=== PATIENT | male | born 1935 | race Caucasian/White ===

== ENCOUNTER → 2016-11-24 | Outpatient (CLI) | payer OTHER, MEDICARE ==
[~2016-11-24] MED LIST: ANT PO; ASPI-435 PO; CALC1TAB9 PO; LOSA1TAB PO; MULT-506 PO; NTRGSL/4 UT; OMEG10007 PO; ROSU5TAB PO
--- NOTE | 2016-11-24 08:38 | DIAGNOSTIC IMAGING REPORT ---
CHEST 2 VIEWS ROUTINE CLINICAL HISTORY: Pneumonia COMPARISON STUDY: 05/08/2016 FINDINGS: There are postsurgical changes of a midline sternotomy. There is indistinctness left heart border, similar to the prior study and likely chronic. There is no lobar consolidation. There is no failure. There are no pleural effusions.[ IMPRESSION: Indistinctness of the left heart border, a finding which is felt to be chronic. No acute findings. Electronically signed by: Simone Fountain M.D. 11/24/2016 8:37 AM Dictated Date/Time: 11/24/2016 8:36 AM
== END | disposition home or self-care (01) ==
LOC: C.RADBC 07:32
PROVIDERS: ATTEND Internal Medicine
DX: J18.9 Pneumonia, unspecified organism (principal); R93.1 Abnormal findings on diagnostic imaging of heart and coronary circulation

== ENCOUNTER → 2017-01-30 | Outpatient (CLI) | payer OTHER, MEDICARE ==
[2017-01-30 11:27] LABS: BASO % 0.5 %; BASO ABS # 0.03 K/uL (0-0.2); COMPLETE YES; EOS % 2.5 %; HEMATOCRIT 41.7 % (42-52); IG% 0.2 %; LYMPH % 29.1 %; LYMPH ABS # 1.78 K/uL (1.2-3.4); MEAN CELL VOLUME 91.4 fL (80-100); MEAN CORPUSCULAR HEMOGLOBIN 31.8 pg (25-34); MEAN CORPUSCULAR HGB CONC 34.8 g/dl (32-36); MEAN PLATELET VOLUME 12.2 fL (7.4-10.4); MONO % 11.1 %; NEUT % 56.6 %; PLATELET COUNT 181 K/uL (130-400); RED BLOOD COUNT 4.56 M/uL (4.7-6.1); WHITE BLOOD COUNT 6.11 K/uL (4.8-10.8)
[2017-01-30 11:42] LABS: ALT/SGPT 20 U/L (12-78); AST/SGOT 17 U/L (15-37); BLOOD UREA NITROGEN 16 mg/dl (7-18); CALCIUM 8.6 mg/dl (8.5-10.1); CARBON DIOXIDE 27 mmol/L (21-32); CHLORIDE 106 mmol/L (98-107); CREATININE 0.75 mg/dl (0.60-1.40); GLUCOSE 94 mg/dl (70-99); POTASSIUM 4.3 mmol/L (3.5-5.1); SODIUM 137 mmol/L (136-145)
[2017-01-30 11:53] LABS: ALB/GLOB RATIO 1.2 (0.9-2); ALKALINE PHOSPHATASE 82 U/L (45-117); CHOLESTEROL 113 mg/dl (0-200); CHOLESTEROL/HDL RATIO 2.8; HDL CHOLESTEROL 41 mg/dl; LDL CHOLESTEROL CALCULATED 59 mg/dl; TRIGLYCERIDES 67 mg/dl (0-150); VERY LOW DENSITY LIPOPROT CALC 13 mg/dl
== END | disposition home or self-care (01) ==
LOC: C.LABBC 07:52
PROVIDERS: ATTEND Internal Medicine
DX: K22.4 Dyskinesia of esophagus (principal)

== ENCOUNTER → 2017-03-02 | Outpatient (CLI) | payer OTHER, MEDICARE ==
--- NOTE | 2017-03-03 05:58 | PAP/PSG TECHNICIAN REPORT ---
[facility] Brick Picker Polysomnogram Report Study name: None Report date: 03/03/2017 Study date: 03/02/2017 Referring Physician: DR. Jack CONLEY Name: BREE HECK Interpreting Physician: John Lopes M.D. Date of : 1935 Brick Picker: Markus Nunes RPSGT. Sex: Male Age: 81 StudyType: PSG PAP Weight: 148 lbs Height: 81 years, Height 5' 2" BMI: 27.07 Medications: LOSARTAN POTASSIUM 25 MG, NITROGLYCERIN 0.4 MG, ROSUVASTATIN CALCIUM 5 MG, ASPIRIN 81 MG, CITRACAL, FISH OIL Patient History PATIENT HAD A SLEEP STUDY DONE IN 2012 AND WAS HERE FOR AN UPDATE TITRATION. HE WAS TITRATED AT [facility] AND HAS BEEN WEARING IT SINCE THEN. HE IS HERE FOR AN UPDATE ON HIS PRESSURE. RM 8 Parameters Monitored NPSG: E1-M2, E2-M1, Fp1-M2, Fp2-M1, F3-M2, F4-M2, F4-M1, C3-M2, C4-M2, C4-M1, O1-M2, O2-M2, O2-M1, T3-M2, T4-M1, P3-M2, P4-M1, CHIN1, CHIN2, HR, EKG, Legs, PFLOW, SNOR, FLOW, CFLOW, Tidal Volume, THOR, ABDO, SpO2, PLTH, CPRESS, ETCO2 Wave, ETCO2, pH Sleep Architecture Sleep Stages Time at Lights Off 9:29:48 PM STAGES Time (min.) TST (%) Time at Lights On 5:14:48 AM Wake 165.5 -- Total Recording Time (TRT) 465.50 min. N1 26.0 9 Total Sleep Period (TSP) 451.0 min. N2 217.0 72 Total Sleep Time (TST) 299.5min. N3 25.5 9 Awake Time 166.0 min. REM 31.0 10 Wake after Sleep Onset 158.0 min. Sleep Efficiency (SE) 64 % Sleep Onset Latency (SERENA) 7.5 min. Number of Stage 1 Shifts None Awakenings 34 Stage Changes 121 Number of REM periods 3 REM 31.0 10 REM Latency 176.5 min. NREM 268.5 90 Body Position Analysis Supine Right Left Side Prone Vertical Total Sleep Time (min.) 197.0 125.9 36.5 162.43 0.0 0.0 Total Sleep Time (%) 46% 42% 12% 54 0% N/A% Total Sleep Time REM (min.) 2.0 29.0 0.0 None 0.0 0.0 Total Sleep Time NREM (min.) 135.1 96.9 36.5 None 0.0 0.0 Intermittent Wake (min.) 59.9 71.2 34.3 None 0.0 0.0 Total Sleep Period (%) 43% None None None None None Arousals Myoclonus (PLM) * Events Count Index Events Count Index Spontaneous 29 6 Events Awake (PLMW) 421 152.6 Respiratory 2 0.4 Events Asleep w/ Arousal (PLMA) 29 5.8 PLM 29 6 Events Asleep w/o Arousal (PLMS) 297 59.5 Snoring 4 1 Total Asleep 326 65.3 Total 64 13 Total 747 96 Respiratory Analysis * CA OA MA CH H RERA Total Count 3 0 0 0 3 1 6 Index 0.6 0.0 0.0 0 0.6 0 1.4 Mean Duration 12.5 0.0 0.0 0.00 22.4 25.0 18.5 Longest Duration 12.6 0.0 0.0 0.00 0.0 25.0 29.9 Respiratory Event Summary Total Supine ~Supine Right Left Prone REM NREM Apneas Count 3 2 1 1 0 N/A 0 3 Index 0.6 1 0 0.5 0.0 N/A 0 1 Hypopneas (4% Desat) Count 3 2 1 1 0 N/A 0 3 Index 0.6 0.9 0 0.5 0.0 N/A 0.0 0.7 Apneas & All Hypopneas Count 6 4 2 2 0 N/A 0 6 Index 1.2 2 1 1 0 N/A 0.0 1.3 Respiratory Events (Wall Covering Contractor+All Hyp+RERA) Count 6 5 2 2 0 N/A 0 6 Index 1.4 2 1 1.0 0.0 N/A 0.0 1.6 Respiratory Related Arousal Count 2 5 2 2 0 N/A 0 2 Index 0.4 0 1 1 0 N/A 0 0 Snoring Analysis Supine Right Left Prone REM NREM Total Snore duration 7.5 min Snores count 208 16 1 N/A 8 217 225 Snore mean duration 2.0 Sec Snores index 91 8 2 N/A 15.5 48.5 45.1 TST with snoring (%) 2.5% Desaturation Event Summary: Minimum %SpO2 Event Count Mean/Min/Max Duration(sec.) Desaturation Index % Time In Bed > 90 10 41.0 / 19.8 / 59.0 1.4 99.2 86 - 90 1 9.5 / 9.5 / 9.5 21.7 0.6 81 - 85 0 N/A 0.0 0.1 76 - 80 0 N/A 0.0 0.0 71 - 75 0 N/A 0.0 0.0 66 - 70 0 N/A 0.0 0.0 61 - 65 0 N/A 0.0 0.0 56 - 60 0 N/A 0.0 0.0 51 - 55 0 N/A 0.0 0.0 < 50 0 N/A 0.0 0.0 Total REM NREM Awake <50% 0.0 min. 0.0 min. 0.0 min. 0.0 min. 51 - 60% 0.0 min. 0.0 min. 0.0 min. 0.0 min. 61 - 70% 0.2 min. 0.0 min. 0.0 min. 0.2 min. 71 - 80% 0.1 min. 0.0 min. 0.0 min. 0.1 min. 81 - 90% 3.4 min. 0.2 min. 0.4 min. 2.8 min. 91 - 100% 438.7 min. 30.7 min. 266.2 min. 141.8 min. Average 94 94 94 94 Minimum SpO2 70 90 83 70 Desaturation Event Index 1.4 0.0 1.1 2.2 # Desat. Events below 89% 2 N/A N/A 2 Time(%) with Saturation below 89% 0.4 0.0 0.1 0.3 Time(min.) with Saturation below 89% 1.7 0.0 0.4 1.3 Time (mins) REM (mins) NREM (mins) % of TST SpO2 Below 90% N/A N/A NN/A 0.1 SpO2 Below 88% 0 0 0 0 Heart Rate Analysis Min (bpm) Max (bpm) Average (bpm) Awake 33 196 55 NREM 46 69 50 REM 49 58 51 Overall 46 69 50 Supplemental O2 Values Minimum O2 level: None Value Start Time End Time Brick Picker Comments Mr. Heck slept in the right, left and supine positions. No cardiac arrhythmia noted. Leg movements noted. No bruxism noted. CPAP was initiated at +4 CMH2O and up-titrated to an optimal level of +6 CMH2O, which nearly eliminated all respiratory events and snoring. A Resmed Allen fx size medium nasal pillow was used during titration Mr. Heck awoke to use the restroom 3 times during the night. Mr. Heck stated I did not sleep as well as I do when I am in my own bed. The final report will be interpreted and signed by a sleep physician. The completed physician report will then be placed in the patient medical record. Therapy Event: Therapy (cm H20) 4 5 6 Total Time at Pressure (min.) 149.7 17.2 298.1 TST at Pressure (min.) 67.2 17.2 215.1 # Periods 1 1 1 Sleep Onset (min.) 7.5 0.0 0.0 REM Onset (min.) N/A N/A 17.1 Sleep Efficiency % 44 100 72 Wakefulness (%) 55.1 0.0 27.8 Wakefulness (min.) 82.5 0.0 83.0 NREM 1 (%) 6.7 0.0 5.4 NREM 1 (min.) 10.0 0.0 16.0 NREM 2 (%) 38.2 100.0 47.8 NREM 2 (min.) 57.2 17.2 142.6 NREM 3 (%) 0.0 0.0 8.6 NREM 3 (min.) 0.0 0.0 25.5 REM (%) 0.0 0.0 10.4 REM (min.) 0.0 0.0 31.0 # Arousals 27 2 35 Arousal Index 24.1 7.0 9.8 # Snore 43 81 101 Snore Index 38.4 282.3 28.2 AHI 1.8 0.0 1.1 AHI Supine 2.7 0.0 1.8 AHI Non-Supine 1.3 N/A 0.5 NREM AHI 1.8 0.0 1.3 REM AHI N/A N/A 0.0 RDI 1.8 0.0 1.4 # Obstructive 0 0 0 # Central Ap 1 0 2 # Mixed 0 0 0 # Hypopneas 1 0 2 RERAS 0 0 1 Total Respiratory Events 2 0 5 Time Below SpO2 89.00% (min.) 0.0 0.0 0.4 Mean NREM SpO2 (%) 94 95 94 Mean REM SpO2 (%) N/A N/A 94 Mean Sleep SpO2 (%) 94 95 94 Min NREM SpO2 (%) 91 94 83 Min REM SpO2 (%) N/A N/A 90 Position Supine (min.) 22.0 17.2 97.8 Position Non-supine (min.) 45.2 0.0 117.2 LM Index Sleep 126.7 163.8 38.2 LM Index NREM 126.7 163.8 41.7 LM Index REM N/A N/A 17.4 Mean Heart Rate (bpm) 50 51 51 Min Heart Rate (bpm) 46 49 46
--- NOTE | 2017-03-03 16:34 | POLYSOMNOGRAPH REPORT ---
CLINICAL DATA: A 81-year-old male with BMI of 27, referred by Dr. Som Che for an updated CPAP study. He had a sleep study done in 2013 and is currently using CPAP 4 cm of water pressure. SLEEP ARCHITECTURE: Total sleep period was 451 minutes. Total sleep time was 299.5 minutes, divided between 268.5 minutes of non-REM sleep and 31 minutes of REM sleep. Sleep onset latency was 7.5 minutes. REM latency was 176.5 minutes. Sleep efficiency was reduced to 64%. Wake after sleep onset was 158 minutes. Sleep consisted of stage N1 9%, stage N2 72%, stage N3 9%, and REM 10%. AROUSAL DATA: 64 arousals were recorded for an index of 13 per hour. PLM DATA: 326 limb movements during sleep were noted for an index of 65.3 per hour with arousal index of 5.8 per hour. RESPIRATORY DATA: The AHI was 1.2. There were 3 central apneic episodes, the longest duration of which was 12.6 seconds. There were 3 hypopneic episodes with mean duration of 22.4 seconds. OXIMETRY DATA: Very mild nocturnal hypoxemia was seen. Oxygen ant was 83% during non-REM sleep. Mean saturation was 94%. EKG: Heart rates ranged from 46-69 beats per minute. No arrhythmias were noted. 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 He used a ResMed Allen FX size medium nasal pillow. He was titrated up to 6 cm of water pressure. At his final pressure setting, he slept for 215.1 minutes with an AHI of 1.1. IMPRESSION: Obstructive sleep apnea corrected with CPAP 6 cm of water pressure, ResMed Allen FX size medium nasal pillow. RECOMMENDATIONS: The patient's CPAP should be increased to 6 cm of water pressure. MTDD
== END | disposition home or self-care (01) ==
LOC: C.NEUR 20:00
PROVIDERS: ATTEND Internal Medicine
DX: G47.33 Obstructive sleep apnea (adult) (pediatric) (principal)

== ENCOUNTER → 2017-08-03 | Outpatient (CLI) | payer OTHER, MEDICARE ==
[2017-08-03 11:09] LABS: BASO % 0.6 %; BASO ABS # 0.04 K/uL (0-0.2); EOS % 3.5 %; EOS ABS # 0.23 K/uL (0-0.5); HEMOGLOBIN 15.1 g/dL (14.0-18.0); IG# 0.01 K/uL (0.00-0.02); LYMPH % 29.3 %; LYMPH ABS # 1.94 K/uL (1.2-3.4); MEAN CELL VOLUME 92.3 fL (80-100); MEAN CORPUSCULAR HEMOGLOBIN 32.4 pg (25-34); MEAN CORPUSCULAR HGB CONC 35.1 g/dl (32-36); MEAN PLATELET VOLUME 12.5 fL (7.4-10.4); MONO % 9.7 %; MONO ABS # 0.64 K/uL (0.11-0.59); NEUT % 56.7 %; NEUT ABS # 3.75 K/uL (1.4-6.5); PLATELET COUNT 212 K/uL (130-400); RED CELL DISTRIBUTION WIDTH CV 13.2 % (11.5-14.5); RED CELL DISTRIBUTION WIDTH SD 44.2 fL (36.4-46.3); WHITE BLOOD COUNT 6.61 K/uL (4.8-10.8)
== END | disposition home or self-care (01) ==
LOC: C.LABBC 07:23
PROVIDERS: ATTEND Internal Medicine
DX: I25.10 Atherosclerotic heart disease of native coronary artery without angina pectoris (principal); G47.33 Obstructive sleep apnea (adult) (pediatric); R53.83 Other fatigue; R00.2 Palpitations; E78.5 Hyperlipidemia, unspecified

== ENCOUNTER → 2017-09-27 | Outpatient (CLI) | payer OTHER, MEDICARE ==
--- NOTE | 2017-09-27 08:42 | DIAGNOSTIC IMAGING REPORT ---
SKULL MIN 4 VIEWS HISTORY: 82 years-old Male R51 Scalp [id number] acute posterior left scalp pain without known injury COMPARISON: MRI the brain 09/29/2015 TECHNIQUE: 6 views of the skull FINDINGS: No acute fracture or suspicious skull lesions identified. No focal soft tissue swelling or opaque foreign body. Mastoid air cells appear clear. Paranasal sinuses also appear generally clear. Prior median sternotomy changes. IMPRESSION: Unremarkable radiographs of the skull. The above report was generated using voice recognition software. It may contain grammatical, syntax or spelling errors. Electronically signed by: Carlo Kimbrough M.D. 09/27/2017 8:41 AM Dictated Date/Time: 09/27/2017 8:39 AM
== END | disposition home or self-care (01) ==
LOC: C.LABBC 07:46
PROVIDERS: ATTEND Physician Assistant
DX: R51 Headache (principal)

== ENCOUNTER → 2018-02-02 | Outpatient (CLI) | payer OTHER, MEDICARE ==
[2018-02-02 10:51] LABS: BASO % 0.6 %; BASO ABS # 0.04 K/uL (0-0.2); EOS % 3.2 %; HEMATOCRIT 41.2 % (42-52); IG# 0.01 K/uL (0.00-0.02); LYMPH % 27.4 %; LYMPH ABS # 1.69 K/uL (1.2-3.4); MEAN CELL VOLUME 93.2 fL (80-100); MEAN CORPUSCULAR HEMOGLOBIN 31.7 pg (25-34); MEAN PLATELET VOLUME 12.9 fL (7.4-10.4); MONO ABS # 0.74 K/uL (0.11-0.59); NEUT % 56.6 %; NEUT ABS # 3.48 K/uL (1.4-6.5); PLATELET COUNT 187 K/uL (130-400); RED CELL DISTRIBUTION WIDTH CV 13.5 % (11.5-14.5); RED CELL DISTRIBUTION WIDTH SD 46.4 fL (36.4-46.3); WHITE BLOOD COUNT 6.16 K/uL (4.8-10.8)
[2018-02-02 11:18] LABS: ALBUMIN 3.6 gm/dl (3.4-5.0); ALKALINE PHOSPHATASE 77 U/L (45-117); ALT/SGPT 21 U/L (12-78); AST/SGOT 18 U/L (15-37); BLOOD UREA NITROGEN 16 mg/dl (7-18); CALCIUM 8.4 mg/dl (8.5-10.1); CARBON DIOXIDE 25 mmol/L (21-32); CHOLESTEROL 133 mg/dl (0-200); CREATININE 0.86 mg/dl (0.60-1.40); GLUCOSE 92 mg/dl (70-99); LDL CHOLESTEROL CALCULATED 75 mg/dl; POTASSIUM 4.1 mmol/L (3.5-5.1); SODIUM 136 mmol/L (136-145); TOTAL PROTEIN 6.7 gm/dl (6.4-8.2)
== END | disposition home or self-care (01) ==
LOC: C.LABBC 07:21
PROVIDERS: ATTEND Internal Medicine
DX: I25.10 Atherosclerotic heart disease of native coronary artery without angina pectoris (principal); G47.33 Obstructive sleep apnea (adult) (pediatric); Z95.9 Presence of cardiac and vascular implant and graft, unspecified; M19.90 Unspecified osteoarthritis, unspecified site; I47.1 Supraventricular tachycardia; E78.5 Hyperlipidemia, unspecified; R53.83 Other fatigue

== ENCOUNTER 2021-05-19 15:04 | Observation (INO) ==
[2021-05-19 15:41] LABS: Basophils # (auto) 0.03 K/uL (0-0.2); Basophils % (auto) 0.4 %; Eosinophils # (auto) 0.22 K/uL (0-0.5); Hematocrit (blood only) 41.3 % (42-52); Hemoglobin 14.2 g/dL (14.0-18.0); Immature Granulocytes # (auto) 0.01 K/uL (0.00-0.02); Immature Granulocytes % (auto) 0.1 %; Lymphocytes # (auto) 2.72 K/uL (1.2-3.4); Lymphocytes % (auto) 36.8 %; Mean Corpuscular Hemoglobin 32.6 pg (25-34); Mean Corpuscular Hgb Conc 34.4 g/dL (32-36); Mean Corpuscular Volume 94.9 fL (80-100); Mean Platelet Volume 11.9 fL (7.4-10.4); Monocytes # (auto) 0.78 K/uL (0.11-0.59); Monocytes % (auto) 10.5 %; Neutrophils # (auto) 3.64 K/uL (1.4-6.5); Neutrophils % (auto) 49.2 %; Platelet Count 219 K/uL (130-400); RDW Coefficient of Variation 13.8 % (11.5-14.5); Red Blood Count 4.35 M/uL (4.7-6.1)
[2021-05-19 15:52] LABS: Partial Thromboplastin Time 25.5 Seconds (21.0-31.0); Prothrombin Time 9.8 Seconds (9.0-12.0)
[2021-05-19 15:57] LABS: Albumin Level 3.7 gm/dl (3.4-5.0); Aspartate Aminotransferase 18 U/L (15-37); BUN Creatinine Ratio 24.3 (10-20); Blood Urea Nitrogen 21 mg/dl (7-18); Calcium 8.7 mg/dl (8.5-10.1); Carbon Dioxide 25 mmol/L (21-32); Chloride 107 mmol/L (98-107); Creatinine Clr Calc Pharmacy 51.9 ml/min; Est GFR (African American) 92.3 ml/min; Est GFR (Non-African American) 79.6 ml/min; Glucose 103 mg/dl (70-99); Potassium 4.2 mmol/L (3.5-5.1); Sodium 140 mmol/L (136-145)
[2021-05-19 16:01] LABS: Alanine Aminotransferase 28 (12-78); Albumin Globulin Ratio 1.2 (0.9-2); Alkaline Phosphatase 76 U/L (45-117); Bilirubin,Total 0.4 mg/dl (0.2-1); Globulin 3.1 gm/dl (2.5-4.0); Total Protein 6.8 gm/dl (6.4-8.2); Troponin I < 0.015 ng/ml (0-0.045)
[2021-05-19] MEDS ORDERED: ASPIRIN CHEW 324 MG PO STA (16:01)
--- NOTE | 2021-05-19 16:07 | Emergency Department Note ---
Impression & Plan Chest pain ED Provider Note NAME: BREE LLANOS AGE: 86 SEX: M : 1935 ARRIVES VIA: Walk-In INFORMANT: Patient, the patient significant other ED PROVIDER(S): Jose Friend DO CHIEF COMPLAINT: Chest pain HPI: The patient is an 86-year-old male who presented to the emergency department for an evaluation of chest pain. The patient describes low substernal chest pain which he describes as a heaviness which began today. He states he had multiple episodes. He took nitroglycerin with resolution of his symptoms. He states he had to take multiple doses of nitroglycerin and the pain was very severe. The patient states he felt the pain in his neck and his face. He has a history of coronary artery disease as well as bypass. 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 He came directly to the emergency department. He normally takes nitroglycerin about once a month but today he had to take multiple doses and he felt that the pain was much more severe than usual. The patient denies having any shortness of breath. He has had no swelling in his legs. He states is been compliant with his usual medications. He denies having any cough or fever. He is vaccinated against COVID-19. He has no pain at this time. ROS: See above HPI for pertinent positives & negatives. A total of 10 systems reviewed and were otherwise negative. PAST MEDICAL HISTORY: See Below PAST SURGICAL HISTORY: See Below FAMILY HISTORY: See Below SOCIAL HISTORY: See Below HOME MEDICATIONS: See Below ALLERGIES: See Below VITALS: See Below PHYSICAL EXAMINATION: GENERAL: Patient is awake alert in no acute distress patient is resting comfortably and showing no signs of anxiety EYES: The conjunctivae are clear. The pupils are round and reactive. EARS, NOSE, MOUTH AND THROAT: The nose is without any evidence of any deformity. NECK: The neck is nontender and supple. RESPIRATORY: Normal respiratory effort is noted there is no evidence of wheezing rhonchi or rales CARDIOVASCULAR: Regular rate and rhythm noted there no murmurs rubs or gallops normal S1 normal S2. GASTROINTESTINAL: The abdomen is soft. Abdomen is nontender. MUSCULOSKELETAL/EXTREMITIES: There is no evidence of gross deformity full range of motion is noted in the hips and shoulders. SKIN: There is no obvious evidence of any rash. There are no petechiae, pallor or cyanosis noted. NEUROLOGIC: Patient is awake alert and oriented x3 MEDICAL DECISION MAKING: The patient is an 86-year-old male who presented to the emergency department with his significant other for an evaluation of chest pain. The patient has a history of angina. He takes nitroglycerin monthly. He states today he took multiple doses of nitroglycerin for very intense chest pain. He states the pain was different from his previous episodes. He presented to the emergency department without pain. I discussed the patient's laboratory and radiographic studies with him. I also discussed the limitations of the emergency department work-up for chest pain with him. Given the patient's history I do feel he may be a better candidate for inpatient management and work-up. For this reason I discussed his case with the on-call [facility] hospitalist. They have agreed to evaluate the patient in the emergency department for further management and disposition. Triage Nursing notes reviewed. Prior medical records reviewed Vital Signs: reviewed and remarkable for elevated blood pressure. Differential diagnosis: Cardiac ischemia, aortic dissection, pulmonary embolism, pneumothorax, pneumoni a, pericarditis, myocarditis, esophageal rupture, GERD, cholecystitis, pancreatitis, musculoskeletal, as well as other pathologies. ER treatment provided: See below Diagnostics interpreted by me: ECG: EKG was obtained in the emergency department. My interpretation is normal sinus rhythm at 63 bpm. There is no ectopy. There is no acute ST segment abnormalities noted. This was compared to a tracing from May 082015. No significant changes were noted Cardiac Monitoring: An order was placed for continuous cardiac monitoring. The monitor shows a rate of 73 bpm with sinus rhythm. Laboratory studies: As stated above and show below. Imaging studies: See below Consultation(s): I discussed this case with the on-call [facility] hospitalist. They have agreed to evaluate the patient in the emergency department for further management and disposition. 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 Surgical History (Updated 05/19/21 @ 17:36 by Luba Castellanos MD) History of kidney surgery History of tonsillectomy and adenoidectomy S/P CABG (coronary artery bypass graft) CABG x2 in 2006: LARIOS-LAD, SVG-OM2 Family History Unknown Diabetes Hypertension Heart disease Mother Renal failure Family/Other Meniere's disease Father Myocardial infarction Denies family history of Ovarian cancer Prostate cancer Breast cancer Colorectal cancer Social History Smoking Status: Former smoker Second Hand Exposure: No; Hx Alcohol Use: No Hx Substance Use: No Preferred Language: Spanish Communication Ability: Impaired Visual Impairment: Limited Hearing Ability: Use of Hearing Aid Drill Punch Operator Required: No Beliefs That Will Affect Care: None marital status: Current Living Situation: Spouse Current Living Situation Comment: home with . current occupational status: retired How many Children do You have: 1 Feels Safe at Home: Yes Childhood Exposure to Second-Hand Smoke: No caffeine: No Dental Care, Regularly: Yes Physical Activity Frequency: 5-6 Times per Week Physical Activity Frequency Comment: walks daily weather permitting Seatbelt Use: always Sunscreen Use: No Assistive Devices: Denture - Upper, Denture - Lower, Glasses and Hearing Aid - Bilateral Allergies Allergies Allergy/AdvReac Type Severity Reaction Status Date / Time Sulfa (Sulfonamide Allergy Unknown Unknown Verified 05/19/21 16:33 Antibiotics) celecoxib AdvReac Severe hypertensio Verified 05/19/21 16:33 n rofecoxib AdvReac Severe hypertensio Verified 05/19/21 16:33 n indomethacin AdvReac Intermediate syncope Unverified 05/19/21 16:33 lactose AdvReac Intermediate DIARRHEA Verified 05/19/21 16:33 Ktqevox-UOL-SpC Reductase AdvReac Unknown Verified 05/19/21 16:33 Inhibitor [Utkpmzr-Gxm-Rai Reductase Inhibitor] Home Meds Home Medications Medication Instructions Recorded Confirmed multivitamin 1 tab PO DAILY 02/19/19 05/19/21 omega-3 fatty acids 1,000 mg 1,000 mg PO DAILY cap 03/18/19 05/19/21 capsule (Fish Oil Concentrate) aluminum-mag hydroxide-simethicone 0 ml PO Q6H PRN 05/19/21 05/19/21 200 mg-200 mg-20 mg/5 mL oral susp calcium carbonate 600 mg-vitamin 1 tab PO DAILY 05/19/21 05/19/21 D3 5 mcg (200 unit) tablet losartan 50 mg tablet 50 mg PO DAILY 05/19/21 05/19/21 Previous Rx's Medication Instructions Recorded aspirin 81 mg tablet,delayed 81 mg PO DAILY #30 tab 03/18/19 release (Adult Low Dose Aspirin) isosorbide mononitrate 30 mg 30 mg PO DAILY #90 tab 06/15/20 tablet,extended release 24 hr nitroglycerin 0.4 mg sublingual 0.4 mg SL Q5M PRN #25 tab 11/04/20 tablet Results & Data (ED) Vital Signs Vital Signs - 24 hr 05/19/21 15:09 05/19/21 15:59 05/19/21 16:13 Temperature 36.1 C L Temperature Source Temporal Artery Scan Pulse Rate 66 65 Pulse Rate [Apical] 65 Pulse Rhythm Regular Pulse Strength Normal Respiratory Rate 20 21 Respiratory Effort / Characteristics Non-Labored Spontaneous Non-Labored Respiratory Depth Normal Respiratory Pattern Regular Blood Pressure 106/69 Blood Pressure [Left Arm] 169/73 H Blood Pressure Mean 81 Blood Pressure Mean [Left Arm] 105 Blood Pressure Position Sitting Pulse Oximetry 97 98 97 Oxygen Delivery Method Room Air Room Air Room Air Sepsis Recent Fever Within 48 Hours No Sepsis New/Unexplained Change in Mental Status No Sepsis Action Taken by Nursing No Action Required 05/19/21 17:04 Temperature Temperature Source Pulse Rate Pulse Rate [Apical] 57 L Pulse Rhythm Pulse Strength Respiratory Rate 18 Respiratory Effort / Characteristics Respiratory Depth Respiratory Pattern Blood Pressure Blood Pressure [Left Arm] 189/78 H Blood Pressure Mean Blood Pressure Mean [Left Arm] 115 Blood Pressure Position Pulse Oximetry 97 Oxygen Delivery Method Room Air Sepsis Recent Fever Within 48 Hours Sepsis New/Unexplained Change in Mental Status Sepsis Action Taken by Residential Medications Current Medication List: was personally reviewed by me Laboratory Data Attestation: I reviewed the patient's lab results. Result diagrams: 05/19/21 19:51 05/19/21 19:51 Lab Results 05/19/21 05/19/21 05/19/21 Range/Units 15:22 15:22 15:22 WBC 7.40 (4.8-10.8) K/uL RBC 4.35 L (4.7-6.1) M/uL Hgb 14.2 (14.0-18.0) g/dL Hct 41.3 L (42-52) % MCV 94.9 (80-100) fL MCH 32.6 (25-34) pg MCHC 34.4 (32-36) g/dL RDW Std Deviation 48.0 H (36.4-46.3) fL RDW Coeff of Carlos 13.8 (11.5-14.5) % Plt Count 219 (130-400) K/uL MPV 11.9 H (7.4-10.4) fL Immature Gran % (Auto) 0.1 % Neut % (Auto) 49.2 % Lymph % (Auto) 36.8 % Nicholas % (Auto) 10.5 % Eos % (Auto) 3.0 % Baso % (Auto) 0.4 % Neut # (Auto) 3.64 (1.4-6.5) K/uL Lymph # (Auto) 2.72 (1.2-3.4) K/uL Nicholas # (Auto) 0.78 H (0.11-0.59) K/uL Eos # (Auto) 0.22 (0-0.5) K/uL Baso # (Auto) 0.03 (0-0.2) K/uL Immature Gran # (Auto) 0.01 (0.00-0.02) K/uL PT 9.8 (9.0-12.0) Seconds INR 1.0 (0.9-1.1) APTT 25.5 (21.0-31.0) Seconds PTT Ratio 1.0 Sodium 140 (136-145) mmol/L Potassium 4.2 (3.5-5.1) mmol/L Chloride 107 (98-107) mmol/L Carbon Dioxide 25 (21-32) mmol/L Anion Gap 8.0 (3-11) BUN 21 H (7-18) mg/dl Creatinine 0.86 (0.6-1.4) mg/dl Est Cr Clr Drug Dosing 51.9 ml/min Est GFR ( Amer) 92.3 ml/min Est GFR (Non-Af Amer) 79.6 ml/min BUN/Creatinine Ratio 24.3 H (10-20) Glucose 103 H (70-99) mg/dl Calcium 8.7 (8.5-10.1) mg/dl Total Bilirubin 0.4 (0.2-1) mg/dl AST 18 (15-37) U/L ALT 28 (12-78) Alkaline Phosphatase 76 (45-117) U/L Troponin I < 0.015 (0-0.045) ng/ml Total Protein 6.8 (6.4-8.2) gm/dl Albumin 3.7 (3.4-5.0) gm/dl Globulin 3.1 (2.5-4.0) gm/dl Albumin/Globulin Ratio 1.2 (0.9-2) SARS-CoV-2, RNA, NAAT (NEGATIVE) 05/19/21 Range/Units 16:10 WBC (4.8-10.8) K/uL RBC (4.7-6.1) M/uL Hgb (14.0-18.0) g/dL Hct (42-52) % MCV (80-100) fL MCH (25-34) pg MCHC (32-36) g/dL RDW Std Deviation (36.4-46.3) fL RDW Coeff of Carlos (11.5-14.5) % Plt Count (130-400) K/uL MPV (7.4-10.4) fL Immature Gran % (Auto) % Neut % (Auto) % Lymph % (Auto) % Nicholas % (Auto) % Eos % (Auto) % Baso % (Auto) % Neut # (Auto) (1.4-6.5) K/uL Lymph # (Auto) (1.2-3.4) K/uL Nicholas # (Auto) (0.11-0.59) K/uL Eos # (Auto) (0-0.5) K/uL Baso # (Auto) (0-0.2) K/uL Immature Gran # (Auto) (0.00-0.02) K/uL PT (9.0-12.0) Seconds INR (0.9-1.1) APTT (21.0-31.0) Seconds PTT Ratio Sodium (136-145) mmol/L Potassium (3.5-5.1) mmol/L Chloride (98-107) mmol/L Carbon Dioxide (21-32) mmol/L Anion Gap (3-11) BUN (7-18) mg/dl Creatinine (0.6-1.4) mg/dl Est Cr Clr Drug Dosing ml/min Est GFR ( Amer) ml/min Est GFR (Non-Af Amer) ml/min BUN/Creatinine Ratio (10-20) Glucose (70-99) mg/dl Calcium (8.5-10.1) mg/dl Total Bilirubin (0.2-1) mg/dl AST (15-37) U/L ALT (12-78) Alkaline Phosphatase (45-117) U/L Troponin I (0-0.045) ng/ml Total Protein (6.4-8.2) gm/dl Albumin (3.4-5.0) gm/dl Globulin (2.5-4.0) gm/dl Albumin/Globulin Ratio (0.9-2) SARS-CoV-2, RNA, NAAT NEGATIVE (NEGATIVE) Administered Medications Heparin Sodium (Porcine) (Heparin Sod 5,000 Unit/0.5 Ml Vial) 5,000 units SQ Q8 EDNA Stop: 06/18/21 21:59 Last Admin: 05/19/21 22:41 Dose: 5,000 units Documented by: [id number] Isosorbide Mononitrate (Isosorbide Nicholas Extended Rel 30 Mg Tabcr) 30 mg PO DAILY EDNA Stop: 06/18/21 17:14 Last Admin: 05/19/21 18:10 Dose: 30 mg Documented by: [id number] Losartan Potassium (Losartan Potassium 50 Mg Tab) 50 mg PO DAILY EDNA Stop: 06/18/21 17:14 Last Admin: 05/19/21 18:10 Dose: 50 mg Documented by: [id number] Discontinued Medications Aspirin (Aspirin Chew 324 Mg) 324 mg PO NOW [facility] Stop: 05/19/21 16:02 Last Admin: 05/19/21 16:07 Dose: 324 mg Documented by: [id number] Imaging Data Radiologist's Impression: Chest X-Ray 05/19/21 15:30 XR chest 1V portable CLINICAL HISTORY: Chest Pain TECHNIQUE: Single frontal radiograph of the chest was obtained. Comparison: Comparison is made to chest 2 views 03/31/2019 FINDINGS: No lines and tubes are seen. The cardiomediastinal silhouette is normal. There is elevation of the left hemidiaphragm with associated atelectasis. No evidence of pleural effusion or pneumothorax. IMPRESSION: No acute chest disease. ACT 112: Negative or not required by law. Electronically signed by: Devonte Sprague M.D. 05/19/2021 4:15 PM Discharge Plan Visit Data Chief Complaint: Chest Pain Stated Complaint: CHEST PAIN ED Provider: Jose Friend Discharge Problem: Chest pain Patient Disposition: Admitted As Inpatient Discharge Instructions Interventions: ED Discharge Assessment Last Done: 05/19/21 20:00 Discharge Problem: Chest pain Qualifiers: Chest pain type: unspecified Qualified Code(s): R07.9 - Chest pain, unspecified
--- NOTE | 2021-05-19 16:16 | XRay Report ---
XR chest 1V portable CLINICAL HISTORY: Chest Pain TECHNIQUE: Single frontal radiograph of the chest was obtained. Comparison: Comparison is made to chest 2 views 03/31/2019 FINDINGS: No lines and tubes are seen. The cardiomediastinal silhouette is normal. There is elevation of the le ft hemidiaphragm with associated atelectasis. No evidence of pleural effusion or pneumothorax. IMPRESSION: No acute chest disease. ACT 112: Negative or not required by law. Electronically signed by: Devonte Sprague M.D. 05/19/2021 4:15 PM
--- NOTE | 2021-05-19 16:31 | Electrocardiogram Report ---
Test Reason : Blood Pressure : / mmHG Vent. Rate : 063 BPM Atrial Rate : 063 BPM P-R Int : 184 ms QRS Dur : 082 ms QT Int : 408 ms P-R-T Axes : 059 012 030 degrees QTc Int : 417 ms Normal sinus rhythm Normal ECG When compared with ECG of 08-MAY-2016 04:58, No significant change was found Confirmed by Jose Yusuf ([id number]) on 05/19/2021 4:30:42 PM Referred By: Confirmed By:Jose Yusuf
[2021-05-19] MEDS ORDERED: NITROGLYCERIN SL 0.4 MG/TAB TAB SL PRN (17:11)
--- NOTE | 2021-05-19 17:33 | History & Physical Report ---
Date of Service May 19, 2021 Assessment & Plan (1) Chest pain: Plan: Mostly atypical chest pain, located mostly on the left precordium and reproducible. Unlikely to be due to ACS. Troponin and EKG within normal limits. 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 Consult cardiology May have benefited from NSAIDs however will hold off given allergies (2) S/P CABG x 2: Plan: We will continue home medications (3) HTN (hypertension): Plan: Initial blood pressure was elevated on admission, 170 systolic. However according to the , his blood pressure usually runs normal. Resume his home medications. Recheck blood pressure. History of Present Illness Chief Complaint: Chest pain Primary Care Provider: Som Che MD This is an 86-year-old male With a history of CAD status post CABG x2, hypertension, hyperlipidemia, who presents to the emergency department today for evaluation of chest pain. According to the from home so the history was obtained "the pain started earlier in the morning. Located mostly around the precordial area radiating to the elbow, associated with jaw numbness. Patient took some nitroglycerin and the pain resolved however after several hours the pain recurred. When I saw the patient here in the emergency department, he said the pain is reproducible. Looking through his chart and history, apparently he has been having this type of chest pains in the past. During his last visit to the earth science technician in December 2020, he had a similar type of atypical chest pain. Here in emergency department, EKG did not show any ST changes, troponins were negative. However due to his significant cardiac history, patient be admitted to the hospital for further observation. Allergies Allergy/AdvReac Type Severity Reaction Status Date / Time Sulfa (Sulfonamide Allergy Unknown Unknown Verified 05/19/21 16:33 Antibiotics) celecoxib AdvReac Severe hypertensio Verified 05/19/21 16:33 n rofecoxib AdvReac Severe hypertensio Verified 05/19/21 16:33 n indomethacin AdvReac Intermediate syncope Unverified 05/19/21 16:33 lactose AdvReac Intermediate DIARRHEA Verified 05/19/21 16:33 [id number] Reductase AdvReac Unknown Verified 05/19/21 16:33 Inhibitor [[id number] Reductase Inhibitor] Home Medications Medication Instructions Recorded Confirmed Type multivitamin 1 tab PO DAILY 02/19/19 05/19/21 History aspirin 81 mg tablet,delayed 81 mg PO DAILY #30 tab 03/18/19 05/19/21 Rx release (Adult Low Dose Aspirin) omega-3 fatty acids 1,000 mg 1,000 mg PO DAILY cap 03/18/19 05/19/21 History capsule (Fish Oil Concentrate) isosorbide mononitrate 30 mg 30 mg PO DAILY #90 tab 06/15/20 05/19/21 Rx tablet,extended release 24 hr nitroglycerin 0.4 mg sublingual 0.4 mg SL Q5M PRN #25 tab 11/04/20 05/19/21 Rx tablet aluminum-mag hydroxide-simethicone 0 ml PO Q6H PRN 05/19/21 05/19/21 History 200 mg-200 mg-20 mg/5 mL oral susp calcium carbonate 600 mg-vitamin 1 tab PO DAILY 05/19/21 05/19/21 History D3 5 mcg (200 unit) tablet losartan 50 mg tablet 50 mg PO DAILY 05/19/21 05/19/21 History Past Med/Surg History Medical History (Updated 05/19/21 @ 17:36 by Luba Castellanos MD) Arthritis of right hip Atrial premature complexes BPH (benign prostatic hyperplasia) Cardiac device in situ Chest pain Coronary artery disease Dyslipidemia Fibromyalgia Heart palpitations HTN (hypertension) Lumbar canal stenosis SHERRY (obstructive sleep apnea) Paroxysmal atrial tachycardia Seborrheic keratosis 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 Surgical History (Updated 05/19/21 @ 17:36 by Luba Castellanos MD) History of kidney surgery History of tonsillectomy and adenoidectomy S/P CABG (coronary artery bypass graft) CABG x2 in 2005: LARIOS-LAD, SVG-OM2 Family History Unknown Diabetes Hypertension Heart disease Mother Renal failure Family/Other Meniere's disease Father Myocardial infarction Denies family history of Ovarian cancer Prostate cancer Breast cancer Colorectal cancer Social History Smoking Status: Former smoker Second Hand Exposure: No; Hx Alcohol Use: Yes Alcohol type: beer Alcohol Intake Frequency: Monthly or Less Hx Substance Use: No Preferred Language: Tajik Visual Impairment: Limited Hearing Ability: Use of Hearing Aid marital status: Current Living Situation: Spouse current occupational status: retired How many Children do You have: 1 Feels Safe at Home: Yes Childhood Exposure to Second-Hand Smoke: No caffeine: No Dental Care, Regularly: Yes Physical Activity Frequency: 5-6 Times per Week Physical Activity Frequency Comment: walks daily weather permitting Seatbelt Use: always Sunscreen Use: No Review of Systems Review of Systems: All systems reviewed are negative, apart from the ones contained in the history. Physical Exam Physical Exam: The patient is awake, alert and oriented 3, well developed and well nourished, normocephalic and atraumatic, lying in bed and in no acute distress. HEENT--PERRL, EOMI, mucous membranes and oropharynx mildly dry Neck--supple. No JVD. No bruits. Thyroid normal, trachea midline, no adenopathy. Heart--normal S1 and S2. No murmurs, rubs or gallops. Lungs--clear bilaterally, no respiratory distress, no accessory muscle use. Abdomen--normal bowel sounds and soft. Mild epigastric and left sided abdominal pain Extremities--no cyanosis or clubbing. No edema. Dermatologic--normal skin turgor, normal color, no abnormal lymph nodes, no rash. Neurologic--cranial nerves II through XII grossly intact. Rheumatologic--normal range of motion. Psychiatric--normal affect. Results & Data Results & Data ([facility]) Vital Signs (Past 12 Hours) Vital Signs Temp Pulse Pulse Resp BP BP Pulse Ox 05/19/21 17:04 57 L 18 189/78 H 97 05/19/21 16:13 97 05/19/21 15:59 65 65 21 169/73 H 98 05/19/21 15:09 97.0 F L 66 20 106/69 97 Laboratory Results Laboratory Results - last 24 hr 05/19/21 05/19/21 05/19/21 15:22 15:22 15:22 WBC 7.40 RBC 4.35 L Hgb 14.2 Hct 41.3 L MCV 94.9 MCH 32.6 MCHC 34.4 RDW Std Deviation 48.0 H RDW Coeff of Carlos 13.8 Plt Count 219 MPV 11.9 H Immature Gran % (Auto) 0.1 Neut % (Auto) 49.2 Lymph % (Auto) 36.8 Burke % (Auto) 10.5 Eos % (Auto) 3.0 Baso % (Auto) 0.4 Neut # (Auto) 3.64 Lymph # (Auto) 2.72 Burke # (Auto) 0.78 H Eos # (Auto) 0.22 Baso # (Auto) 0.03 Immature Gran # (Auto) 0.01 PT 9.8 INR 1.0 APTT 25.5 PTT Ratio 1.0 Sodium 140 Potassium 4.2 Chloride 107 Carbon Dioxide 25 Anion Gap 8.0 BUN 21 H Creatinine 0.86 Est Cr Clr Drug Dosing 51.9 Est GFR ( Amer) 92.3 Est GFR (Non-Af Amer) 79.6 BUN/Creatinine Ratio 24.3 H Glucose 103 H Calcium 8.7 Total Bilirubin 0.4 AST 18 ALT 28 Alkaline Phosphatase 76 Troponin I < 0.015 Total Protein 6.8 Albumin 3.7 Globulin 3.1 Albumin/Globulin Ratio 1.2 SARS-CoV-2, RNA, NAAT 05/19/21 16:10 WBC RBC Hgb Hct MCV MCH MCHC RDW Std Deviation RDW Coeff of Carlos Plt Count MPV Immature Gran % (Auto) Neut % (Auto) Lymph % (Auto) Burke % (Auto) Eos % (Auto) Baso % (Auto) Neut # (Auto) Lymph # (Auto) Burke # (Auto) Eos # (Auto) Baso # (Auto) Immature Gran # (Auto) PT INR APTT PTT Ratio Sodium Potassium Chloride Carbon Dioxide Anion Gap BUN Creatinine Est Cr Clr Drug Dosing Est GFR ( Amer) Est GFR (Non-Af Amer) BUN/Creatinine Ratio Glucose Calcium Total Bilirubin AST ALT Alkaline Phosphatase Troponin I Total Protein Albumin Globulin Albumin/Globulin Ratio SARS-CoV-2, RNA, NAAT NEGATIVE Code Status & VTE Plan VTE Prophylaxis Plan VTE Prophylaxis will be ordered: Yes PG Care Time/CCT Total # of Minutes Spent Total Time Spent with Patient: Total time spent is greater than 50% in coordination of care (as documented) at patient's floor/unit and/or counseling patient: Coding Level of Care Code INT OBSERVATION CARE 30M LVL 1 Diagnoses Chest pain R07.9 S/P CABG x 2 Z95.1 HTN (hypertension) I10 Hypertension type: essential hypertension (1) HTN (hypertension) Hypertension type: essential hypertension Qualified Code(s): I10 - Essential (primary) hypertension
[2021-05-19] MEDS: ISOSORBIDE MONO EXTENDED REL 30 MG TABCR PO SCH (18:10)
[2021-05-19] MEDS: LOSARTAN POTASSIUM 50 MG TAB PO SCH (18:10)
[2021-05-19 19:58] LABS: Hematocrit (blood only) 41.3 % (42-52); Mean Corpuscular Hemoglobin 32.4 pg (25-34); Mean Corpuscular Hgb Conc 33.9 g/dL (32-36); Mean Corpuscular Volume 95.6 fL (80-100); Mean Platelet Volume 11.5 fL (7.4-10.4); Platelet Count 215 K/uL (130-400); RDW Coefficient of Variation 13.7 % (11.5-14.5); RDW Standard Deviation 48.2 fL (36.4-46.3); Red Blood Count 4.32 M/uL (4.7-6.1); White Blood Count 8.26 K/uL (4.8-10.8)
[2021-05-19 20:19] LABS: BUN Creatinine Ratio 20.7 (10-20); Blood Urea Nitrogen 20 mg/dl (7-18); Calcium 8.8 mg/dl (8.5-10.1); Carbon Dioxide 30 mmol/L (21-32); Chloride 106 mmol/L (98-107); Est GFR (African American) 82.7 ml/min; Est GFR (Non-African American) 71.4 ml/min; Glucose 107 mg/dl (70-99); Sodium 139 mmol/L (136-145)
[2021-05-19 20:24] LABS: Troponin I < 0.015 ng/ml (0-0.045)
[2021-05-19] MEDS: HEPARIN SOD 5,000 UNIT/0.5 ML VIAL SQ SCH (22:41)
[2021-05-20 06:31] LABS: Hematocrit (blood only) 41.1 % (42-52); Hemoglobin 13.9 g/dL (14.0-18.0); Mean Corpuscular Hemoglobin 32.1 pg (25-34); Mean Corpuscular Hgb Conc 33.8 g/dL (32-36); Mean Corpuscular Volume 94.9 fL (80-100); Mean Platelet Volume 12.1 fL (7.4-10.4); Platelet Count 212 K/uL (130-400); RDW Coefficient of Variation 13.6 % (11.5-14.5); RDW Standard Deviation 47.5 fL (36.4-46.3); Red Blood Count 4.33 M/uL (4.7-6.1); White Blood Count 6.58 K/uL (4.8-10.8)
[2021-05-20] MEDS: HEPARIN SOD 5,000 UNIT/0.5 ML VIAL SQ SCH (06:42)
[2021-05-20 07:24] LABS: BUN Creatinine Ratio 21.3 (10-20); Blood Urea Nitrogen 19 mg/dl (7-18); Carbon Dioxide 25 mmol/L (21-32); Chloride 108 mmol/L (98-107); Est GFR (Non-African American) 78.5 ml/min; Glucose 100 mg/dl (70-99); Sodium 138 mmol/L (136-145)
[2021-05-20 07:28] LABS: Troponin I < 0.015 ng/ml (0-0.045)
[2021-05-20] MEDS ORDERED: ASPIRIN 81 MG ECTAB PO SCH (09:00)
[2021-05-20] MEDS ORDERED: CALCIUM 600MG + VIT D 400 IU TAB PO SCH (09:00)
[2021-05-20] MEDS ORDERED: MULTIVITAMIN TAB PO SCH (09:00)
[2021-05-20] MEDS ORDERED: OMEGA-3 (PURIFIED FISH OIL) 1 GM CAP PO SCH (09:00)
[2021-05-20] MEDS: ISOSORBIDE MONO EXTENDED REL 30 MG TABCR PO SCH (09:43)
[2021-05-20] MEDS: LOSARTAN POTASSIUM 50 MG TAB PO SCH (09:43)
--- NOTE | 2021-05-20 11:27 | Hospitalist Progress Note ---
Date of Service May 20, 2021 Assessment & Plan (1) Chest pain: Plan: Pain much better today. Most likely atypical chest pain, located mostly on the left precordium and reproducible. Unlikely to be due to ACS. Troponin and EKG within normal limits. 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 Consult cardiology May have benefited from NSAIDs however will hold off given allergies (2) S/P CABG x 2: Plan: We will continue home medications (3) HTN (hypertension): Plan: Initial blood pressure was elevated on admission, 170 systolic. Today 146/65 continue to monitor Admission and Anticipated Discharge Date Admission Date: May 19, 2021 anticipate d/c in the next 24 hrs Subjective patient seen and examined today Review of Systems Review of Systems: All systems reviewed are negative, apart from the ones contained in the history. Physical Exam Physical Exam: The patient is awake, alert and oriented 3, well developed and well nourished, normocephalic and atraumatic, lying in bed and in no acute di stress. HEENT--PERRL, EOMI, mucous membranes and oropharynx mildly dry Neck--supple. No JVD. No bruits. Thyroid normal, trachea midline, no adenopathy. Heart--normal S1 and S2. No murmurs, rubs or gallops. Lungs--clear bilaterally, no respiratory distress, no accessory muscle use. Abdomen--normal bowel sounds and soft. Mild epigastric and left sided abdominal pain Extremities--no cyanosis or clubbing. No edema. Dermatologic--normal skin turgor, normal color, no abnormal lymph nodes, no rash. Neurologic--cranial nerves II through XII grossly intact. Rheumatologic--normal range of motion. Psychiatric--normal affect. Results & Data Results & Data ([facility]) Vital Signs (Past 12 Hours) Vital Signs Temp Pulse Resp BP BP Pulse Ox 05/20/21 07:15 97.9 F 60 20 146/65 H 96 05/20/21 03:11 98.1 F 59 L 18 150/65 H 97 Laboratory Results Laboratory Results - last 24 hr 05/19/21 05/19/21 05/19/21 15:22 15:22 15:22 WBC 7.40 RBC 4.35 L Hgb 14.2 Hct 41.3 L MCV 94.9 MCH 32.6 MCHC 34.4 RDW Std Deviation 48.0 H RDW Coeff of Carlos 13.8 Plt Count 219 MPV 11.9 H Immature Gran % (Auto) 0.1 Neut % (Auto) 49.2 Lymph % (Auto) 36.8 [place] % (Auto) 10.5 Eos % (Auto) 3.0 Baso % (Auto) 0.4 Neut # (Auto) 3.64 Lymph # (Auto) 2.72 [place] # (Auto) 0.78 H Eos # (Auto) 0.22 Baso # (Auto) 0.03 Immature Gran # (Auto) 0.01 PT 9.8 INR 1.0 APTT 25.5 PTT Ratio 1.0 Sodium 140 Potassium 4.2 Chloride 107 Carbon Dioxide 25 Anion Gap 8.0 BUN 21 H Creatinine 0.86 Est Cr Clr Drug Dosing 51.9 Est GFR ( Amer) 92.3 Est GFR (Non-Af Amer) 79.6 BUN/Creatinine Ratio 24.3 H Glucose 103 H Calcium 8.7 Total Bilirubin 0.4 AST 18 ALT 28 Alkaline Phosphatase 76 Troponin I < 0.015 Total Protein 6.8 Albumin 3.7 Globulin 3.1 Albumin/Globulin Ratio 1.2 SARS-CoV-2, RNA, NAAT 05/19/21 05/19/21 05/19/21 16:10 19:51 19:51 WBC 8.26 RBC 4.32 L Hgb 14.0 Hct 41.3 L MCV 95.6 MCH 32.4 MCHC 33.9 RDW Std Deviation 48.2 H RDW Coeff of Carlos 13.7 Plt Count 215 MPV 11.5 H Immature Gran % (Auto) Neut % (Auto) Lymph % (Auto) [place] % (Auto) Eos % (Auto) Baso % (Auto) Neut # (Auto) Lymph # (Auto) [place] # (Auto) Eos # (Auto) Baso # (Auto) Immature Gran # (Auto) PT INR APTT PTT Ratio Sodium 139 Potassium 4.0 Chloride 106 Carbon Dioxide 30 Anion Gap 3.0 BUN 20 H Creatinine 0.97 Est Cr Clr Drug Dosing 46.0 Est GFR ( Amer) 82.7 Est GFR (Non-Af Amer) 71.4 BUN/Creatinine Ratio 20.7 H Glucose 107 H Calcium 8.8 Total Bilirubin AST ALT Alkaline Phosphatase Troponin I < 0.015 Total Protein Albumin Globulin Albumin/Globulin Ratio SARS-CoV-2, RNA, NAAT NEGATIVE 05/20/21 05/20/21 05:53 05:53 WBC 6.58 RBC 4.33 L Hgb 13.9 L Hct 41.1 L MCV 94.9 MCH 32.1 MCHC 33.8 RDW Std Deviation 47.5 H RDW Coeff of Carlos 13.6 Plt Count 212 MPV 12.1 H Immature Gran % (Auto) Neut % (Auto) Lymph % (Auto) [place] % (Auto) Eos % (Auto) Baso % (Auto) Neut # (Auto) Lymph # (Auto) [place] # (Auto) Eos # (Auto) Baso # (Auto) Immature Gran # (Auto) PT INR APTT PTT Ratio Sodium 138 Potassium 4.0 Chloride 108 H Carbon Dioxide 25 Anion Gap 5.0 BUN 19 H Creatinine 0.89 Est Cr Clr Drug Dosing 51.0 Est GFR ( Amer) 91.0 Est GFR (Non-Af Amer) 78.5 BUN/Creatinine Ratio 21.3 H Glucose 100 H Calcium 9.0 Total Bilirubin AST ALT Alkaline Phosphatase Troponin I < 0.015 Total Protein Albumin Globulin Albumin/Globulin Ratio SARS-CoV-2, RNA, NAAT PG Care Time/CCT Total # of Minutes Spent Total Time Spent with Patient: Total time spent is greater than 50% in coordination of care (as documented) at patient's floor/unit and/or counseling patient: Coding Level of Care Code 18974 Subseq Obs Care Lvl 2 Diagnoses Chest pain R07.9 S/P CABG x 2 Z95.1 HTN (hypertension) I10 Hypertension type: essential hypertension (1) HTN (hypertension) Hypertension type: essential hypertension Qualified Code(s): I10 - Essential (primary) hypertension
[2021-05-20 11:52] VITALS: BP 144/75; TEMP 97.5; O2SAT 94
--- NOTE | 2021-05-20 12:24 | Cardiology Consultation ---
Date of Consultation May 20, 2021 Assessment & Plan (1) Chest pain: (2) Coronary artery disease: (3) S/P CABG x 2: (4) HTN (hypertension): (5) Dyslipidemia: ASSESSMENT/PLAN: 1. Chest pain: Chest pain is atypical and not consistent with ischemic heart disease. Chest pain is consistent with musculoskeletal etiology as he is very tender upon palpation. This is chronic and has been evaluated several times in the past in the outpatient setting. He has undergone multiple cardiac catheterizations over the years for chest discomfort with findings reported as stable. Ischemic evaluation not indicated at this time. Underwent dobutamine stress echo 2 years ago, without ischemic changes. 2. CAD s/p CABG x 2: Difficult historian but very reproducible chest discomfort as noted above. There were no significant changes in the past with nitrate therapy in his symptoms. He is not on beta-lynda due to bradycardia issues in the past while on therapy. He has not tolerated Ranexa. He is intolerant to statin therapy. Continue aspirin 81 mg daily. 3. Hypertension: Blood pressure reasonably controlled. Blood pressure was more elevated on presentation. Can continue current regimen. 4. Dyslipidemia: He is intolerant to statin therapy and has declined other non statin therapies in the past. 5. Disposition: Attempt was made to contact his via telephone to discuss his presentation in more detail, but there was no answer. Patient care communicated with primary hospitalist, Dr. Castellanos. Thank you for allowing me to participate in the care of your patient. Please call for any other questions or concerns. Sincerely, Bebeto Seymour M.D. History of Present Illness Reason for Consultation: Chest pain Requesting Physician: Luba Castellanos MD Attending Physician: Luba Castellanos MD History of Present Illness Mr. Heck is a very pleasant 86-year-old gentleman with a history significant for CAD status post CABG x2, hypertension, dyslipidemia, and bradycardia. He had CABG in 2006 at [facility] and has since had recurrent cardiac catheterizations due to chest pain in 2006, 2010, 2014, and 2016. He had stable findings reported. He has not tolerated statins. Beta-blockers in the past had caused bradycardia and syncope. He reportedly did not tolerate Ranexa. He has had a loop recorder for syncope which has since been explanted in 2016. He has had the following studies/procedures: 1. CABG times to 2005 at [facility]: LARIOS to LAD and SVG to OM2. 2. Loop recorder September 2012 and explanted 2015. 3. Cardiac catheterization 05/08/2016: LMCA proximal 90%. Ostial LAD 90%. Mid LAD 80-90%. Competitive flow in distal LAD. Ostial D1 20-30%. Mid circumflex 95%. Competitive flow in OM 2. Dominant RCA. Ostial PDA 20-30%. Larios to LAD patent. SVG to OM2 patent. EF 65%. LVEDP 7. 4. Echo 11/16/2015: Normal LV size, wall motion, systolic function. EF 55%. Mild LVH. No significant valvular abnormalities. 5. Holter 05/02/2019: Sinus rhythm. Average heart rate 61. Isolated PACs and PVCs. No arrhythmia. Patient event activations had no arrhythmia correlate. 6. Dobutamine stress echo 04/24/2019: Negative at 90% MPHR. No chest pain. EF > 70% at baseline. Normal wall motion. Mild LVH. Moderate left atrial dilation. No significant valvular abnormalities. He was admitted on 05/19/2021 for chest discomfort. It was felt by hospitalist service that chest discomfort was likely atypical and reproducible on exam. Unfortunately, patient is a poor historian. Attempt was made to call his , but there was no answer. His last evaluation by me was on 01/06/2021 in the outpatient setting. He has a history of atypical/musculoskeletal chest discomfort. He recalls left upper chest discomfort that he has occasionally. He does not remember exactly why he came to the hospital other than stating that his told him to. He states that he feels well now. He was found in his room out of bed walking in his room. He denies shortness of breath. He states that there is a constant soreness in his left chest. He was able to identify a discrete spot in his left upper chest, stating that it was tender. He states that he has occasional swelling in his lower extremities. He acknowledges that he has poor memory. Review of systems:As above. Review of systems otherwise negative/unremarkable, or unobtainable due to patient's memory issues. Family history:Brothers with CAD. Social history: He quit smoking at the age of 22. Rare alcohol. He lives with his . They have 1 daughter. Two grandchildren. 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 Allergies Allergy/AdvReac Type Severity Reaction Status Date / Time Sulfa (Sulfonamide Allergy Unknown Unknown Verified 05/19/21 16:33 Antibiotics) celecoxib AdvReac Severe hypertensio Verified 05/19/21 16:33 n rofecoxib AdvReac Severe hypertensio Verified 05/19/21 16:33 n indomethacin AdvReac Intermediate syncope Unverified 05/19/21 16:33 lactose AdvReac Intermediate DIARRHEA Verified 05/19/21 16:33 Vwoorhz-KYN-TtL Reductase AdvReac Unknown Verified 05/19/21 16:33 Inhibitor [Zkkqqnx-Hhl-Gzb Reductase Inhibitor] Home Medications Medication Instructions Recorded Confirmed Type multivitamin 1 tab PO DAILY 02/19/19 05/19/21 History aspirin 81 mg tablet,delayed 81 mg PO DAILY #30 tab 03/18/19 05/19/21 Rx release (Adult Low Dose Aspirin) omega-3 fatty acids 1,000 mg 1,000 mg PO DAILY cap 03/18/19 05/19/21 History capsule (Fish Oil Concentrate) isosorbide mononitrate 30 mg 30 mg PO DAILY #90 tab 06/15/20 05/19/21 Rx tablet,extended release 24 hr nitroglycerin 0.4 mg sublingual 0.4 mg SL Q5M PRN #25 tab 11/04/20 05/19/21 Rx tablet aluminum-mag hydroxide-simethicone 0 ml PO Q6H PRN 05/19/21 05/19/21 History 200 mg-200 mg-20 mg/5 mL oral susp calcium carbonate 600 mg-vitamin 1 tab PO DAILY 05/19/21 05/19/21 History D3 5 mcg (200 unit) tablet losartan 50 mg tablet 50 mg PO DAILY 05/19/21 05/19/21 History Patient History Medical History Arthritis of right hip Atrial premature complexes BPH (benign prostatic hyperplasia) Cardiac device in situ Chest pain Coronary artery disease Dyslipidemia Fibromyalgia Heart palpitations HTN (hypertension) Lumbar canal stenosis SHERRY (obstructive sleep apnea) Paroxysmal atrial tachycardia Seborrheic keratosis 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 Surgical History (Updated 05/19/21 @ 17:36 by Luba Castellanos MD) History of kidney surgery History of tonsillectomy and adenoidectomy S/P CABG (coronary artery bypass graft) CABG x2 in 2006: LARIOS-LAD, SVG-OM2 Family History Unknown Diabetes Hypertension Heart disease Mother Renal failure Family/Other Meniere's disease Father Myocardial infarction Denies family history of Ovarian cancer Prostate cancer Breast cancer Colorectal cancer Social History Smoking Status: Former smoker Second Hand Exposure: No; Hx Alcohol Use: No Hx Substance Use: No Preferred Language: [place] Communication Ability: Impaired Visual Impairment: Limited Hearing Ability: Use of Hearing Aid 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 current occupational status: retired How many Children do You have: 1 Feels Safe at Home: Yes Childhood Exposure to Second-Hand Smoke: No caffeine: No Dental Care, Regularly: Yes Physical Activity Frequency: 5-6 Times per Week Physical Activity Frequency Comment: walks daily weather permitting Seatbelt Use: always Sunscreen Use: No Assistive Devices: Hearing Aid - Bilateral Physical Exam Physical Exam: Gen.: No acute distress. Alert. HEENT: Anicteric sclera. Neck: No JVD. No bruits. Normal carotid upstrokes bilaterally. Cardiac: PMI was nondisplaced. No ventricular heave. Regular. Normal S1-S2. No murmurs, rubs, or gallops. Pulmonary: Clear to auscultation bilaterally without wheezes, rales, or rhonchi. Abdomen: Soft, nontender, nondistended, with normoactive bowel sounds. No bruits noted. Extremities: 2+ radial pulses bilaterally. 2+ posterior tibialis pulses bilaterally. Bilateral lower extremity varicose veins with trace bilateral lower extremity edema. No cyanosis. Psychiatric: Affect appears appropriate. Chest: Very focal tender area upon palpation left upper chest, at site from prior surgical procedure (visible scar). This area was very tender. No palpable mass Results & Data ([facility]) Vital Signs (Past 12 Hours) Vital Signs Temp Pulse Resp BP BP Pulse Ox 05/20/21 11:00 36.4 C L 60 20 144/75 H 94 05/20/21 07:15 36.6 C 60 20 146/65 H 96 05/20/21 03:11 36.7 C 59 L 18 150/65 H 97 Laboratory Results Laboratory Results - last 24 hr 05/19/21 05/19/21 05/19/21 15:22 15:22 15:22 WBC 7.40 RBC 4.35 L Hgb 14.2 Hct 41.3 L MCV 94.9 MCH 32.6 MCHC 34.4 RDW Std Deviation 48.0 H RDW Coeff of Carlos 13.8 Plt Count 219 MPV 11.9 H Immature Gran % (Auto) 0.1 Neut % (Auto) 49.2 Lymph % (Auto) 36.8 [place] % (Auto) 10.5 Eos % (Auto) 3.0 Baso % (Auto) 0.4 Neut # (Auto) 3.64 Lymph # (Auto) 2.72 [place] # (Auto) 0.78 H Eos # (Auto) 0.22 Baso # (Auto) 0.03 Immature Gran # (Auto) 0.01 PT 9.8 INR 1.0 APTT 25.5 PTT Ratio 1.0 Sodium 140 Potassium 4.2 Chloride 107 Carbon Dioxide 25 Anion Gap 8.0 BUN 21 H Creatinine 0.86 Est Cr Clr Drug Dosing 51.9 Est GFR ( Amer) 92.3 Est GFR (Non-Af Amer) 79.6 BUN/Creatinine Ratio 24.3 H Glucose 103 H Calcium 8.7 Total Bilirubin 0.4 AST 18 ALT 28 Alkaline Phosphatase 76 Troponin I < 0.015 Total Protein 6.8 Albumin 3.7 Globulin 3.1 Albumin/Globulin Ratio 1.2 SARS-CoV-2, RNA, NAAT 05/19/21 05/19/21 05/19/21 16:10 19:51 19:51 WBC 8.26 RBC 4.32 L Hgb 14.0 Hct 41.3 L MCV 95.6 MCH 32.4 MCHC 33.9 RDW Std Deviation 48.2 H RDW Coeff of Carlos 13.7 Plt Count 215 MPV 11.5 H Immature Gran % (Auto) Neut % (Auto) Lymph % (Auto) [place] % (Auto) Eos % (Auto) Baso % (Auto) Neut # (Auto) Lymph # (Auto) [place] # (Auto) Eos # (Auto) Baso # (Auto) Immature Gran # (Auto) PT INR APTT PTT Ratio Sodium 139 Potassium 4.0 Chloride 106 Carbon Dioxide 30 Anion Gap 3.0 BUN 20 H Creatinine 0.97 Est Cr Clr Drug Dosing 46.0 Est GFR ( Amer) 82.7 Est GFR (Non-Af Amer) 71.4 BUN/Creatinine Ratio 20.7 H Glucose 107 H Calcium 8.8 Total Bilirubin AST ALT Alkaline Phosphatase Troponin I < 0.015 Total Protein Albumin Globulin Albumin/Globulin Ratio SARS-CoV-2, RNA, NAAT NEGATIVE 05/20/21 05/20/21 05:53 05:53 WBC 6.58 RBC 4.33 L Hgb 13.9 L Hct 41.1 L MCV 94.9 MCH 32.1 MCHC 33.8 RDW Std Deviation 47.5 H RDW Coeff of Carlos 13.6 Plt Count 212 MPV 12.1 H Immature Gran % (Auto) Neut % (Auto) Lymph % (Auto) [place] % (Auto) Eos % (Auto) Baso % (Auto) Neut # (Auto) Lymph # (Auto) [place] # (Auto) Eos # (Auto) Baso # (Auto) Immature Gran # (Auto) PT INR APTT PTT Ratio Sodium 138 Potassium 4.0 Chloride 108 H Carbon Dioxide 25 Anion Gap 5.0 BUN 19 H Creatinine 0.89 Est Cr Clr Drug Dosing 51.0 Est GFR ( Amer) 91.0 Est GFR (Non-Af Amer) 78.5 BUN/Creatinine Ratio 21.3 H Glucose 100 H Calcium 9.0 Total Bilirubin AST ALT Alkaline Phosphatase Troponin I < 0.015 Total Protein Albumin Globulin Albumin/Globulin Ratio SARS-CoV-2, RNA, NAAT Diagnostic Findings Chest x-ray 05/19/2021: No acute disease. ECG personally reviewed: ECG 05/19/2021 at 4:27 p.m.: Sinus rhythm 62 beats per minute. Normal ECG. ECG 05/19/2021 at 3:16 p.m.: Sinus rhythm 63 beats per minute. Normal ECG. Telemetry personally reviewed: Sinus rhythm. No arrhythmia. Medications Administered Current Inpatient Medications Aspirin (Aspirin 81 Mg Ectab) 81 mg PO DAILY EDNA Stop: 06/19/21 08:59 Last Admin: 05/20/21 08:49 Dose: 81 mg Documented by: Fish Oil (Webster-3 (Purified Fish Oil) 1 Gm Cap) 1 gm PO DAILY [facility] Stop: 06/19/21 08:59 Last Admin: 05/20/21 08:49 Dose: 1 gm Documented by: Heparin Sodium (Porcine) (Heparin Sod 5,000 Unit/0.5 Ml Vial) 5,000 units SQ Q8 EDNA Stop: 06/18/21 21:59 Last Admin: 05/20/21 06:42 Dose: 5,000 units Documented by: Isosorbide Mononitrate (Isosorbide [place] Extended Rel 30 Mg Tabcr) 30 mg PO DAILY EDNA Stop: 06/18/21 17:14 Last Admin: 05/20/21 09:43 Dose: 30 mg Documented by: Losartan Potassium (Losartan Potassium 50 Mg Tab) 50 mg PO DAILY EDNA Stop: 06/18/21 17:14 Last Admin: 05/20/21 09:43 Dose: 50 mg Documented by: Multivitamins (Multivitamin Tab) 1 tab PO QAM [facility] Stop: 06/19/21 08:59 Last Admin: 05/20/21 08:49 Dose: 1 tab Documented by: Multivitamins/Minerals (Calcium 600mg + Vit D 400 Iu Tab) 1 tab PO DAILY [facility] Stop: 06/19/21 08:59 Last Admin: 05/20/21 08:49 Dose: 1 tab Documented by: Nitroglycerin (Nitroglycerin Sl 0.4 Mg/Tab Tab) 0.4 mg SL Q5M PRN PRN Reason: chest pain Stop: 06/18/21 17:10 PG Care Time/CCT Total # of Minutes Spent Total Time Spent with Patient: Total time spent is greater than 50% in coordination of care (as documented) at patient's floor/unit and/or counseling patient: Coding Level of Care Code 13040 Office/Outpt Visit, Est Diagnoses Chest pain R07.9 Coronary artery disease I25.10 Coronary Disease-Associated Artery/Lesion type: mi[place]kmaq artery [place] vs. transplanted heart: mi[place]kmaq heart Associated angina: without angina S/P CABG x 2 Z95.1 HTN (hypertension) I10 Hypertension type: essential hypertension Dyslipidemia E78.5 (1) Coronary artery disease Coronary Disease-Associated Artery/Lesion type: [place] artery [place] vs. transplanted heart: mi[place]q heart Associated angina: without angina Qualified Code(s): I25.10 - Atherosclerotic heart disease of mi[place]kmaq coronary artery without angina pectoris (2) HTN (hypertension) Hypertension type: essential hypertension Qualified Code(s): I10 - Essential (primary) hypertension
--- NOTE | 2021-05-20 12:36 | Discharge Summary ---
Date of Service May 20, 2021 Admission HPI Per Admitting Provider This is an 86-year-old male With a history of CAD status post CABG x2, hypertension, hyperlipidemia, who presents to the emergency department today for evaluation of chest pain. According to the from home so the history was obtained "the pain started earlier in the morning. Located mostly around the precordial area radiating to the elbow, associated with jaw numbness. Patient took some nitroglycerin and the pain resolved however after several hours the pain recurred. When I saw the patient here in the emergency department, he said the pain is reproducible. Looking through his chart and history, apparently he has been having this type of chest pains in the past. During his last visit to the estimating manager in December 2020, he had a similar type of atypical chest pain. Here in emergency department, EKG did not show any ST changes, troponins were negative. However due to his significant cardiac history, patient be admitted to the hospital for further observation. Principal Diagnosis chest pain Discharge Exam The patient is awake, alert and oriented 3, well developed and well nourished, normocephalic and atraumatic, lying in bed and in no acute distress. HEENT--PERRL, EOMI, mucous membranes and oropharynx mildly dry Neck--supple. No JVD. No bruits. Thyroid normal, trachea midline, no adenopathy . Heart--normal S1 and S2. No murmurs, rubs or gallops. Lungs--clear bilaterally, no respiratory distress, no accessory muscle use. Abdomen--normal bowel sounds and soft. Mild epigastric and left sided abdominal pain Extremities--no cyanosis or clubbing. No edema. Dermatologic--normal skin turgor, normal color, no abnormal lymph nodes, no rash. Neurologic--cranial nerves II through XII grossly intact. Rheumatologic--normal range of motion. Psychiatric--normal affect. Discharge Data Allergies Allergy/AdvReac Type Severity Reaction Status Date / Time Sulfa (Sulfonamide Allergy Unknown Unknown Verified 05/19/21 16:33 Antibiotics) celecoxib AdvReac Severe hypertensio Verified 05/19/21 16:33 n rofecoxib AdvReac Severe hypertensio Verified 05/19/21 16:33 n indomethacin AdvReac Intermediate syncope Unverified 05/19/21 16:33 lactose AdvReac Intermediate DIARRHEA Verified 05/19/21 16:33 Msooltk-BNV-HhD Reductase AdvReac Unknown Verified 05/19/21 16:33 Inhibitor [Fhjtsrk-Rsb-Scy Reductase Inhibitor] Consultations 05/19/21 17:04 ED Decision to Admit Stat 05/20/21 11:38 Consult Cardiology Routine Hospital Course (1) Chest pain: Pain much better today. Most likely atypical chest pain, located mostly on the left precordium and reproducible. Unlikely to be due to ACS. Troponin and EKG within normal limits. 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 Consult cardiology May have benefited from NSAIDs however will hold off given allergies (2) S/P CABG x 2: We will continue home medications (3) HTN (hypertension): Initial blood pressure was elevated on admission, 170 systolic. Today 146/65 continue to monitor Total Time Total Time Spent Total Time Spent (In Minutes): 35 min Discharge Plan Discharge Items Patient Disposition: Home - Self-Care Reason For Visit: CHEST PAIN Discharge Diagnosis: chest pain Condition on Discharge: Good Activity: Resume your previous activity Non-emergency contact: Primary Care Provider Call non-emergency contact if: you have any medication questions Follow-up/Referrals: Som Che MD [Primary Care Provider] - Diet: Heart Healthy Addtl Attending Provider Instructions: please make appointment to follow up with your regular PCP and cardiology Pending Studies at Discharge: No Stand-Alone Forms: [employer], Smoking Cessation Medications and DC Order Prescriptions: Continued nitroglycerin 0.4 mg tablet, sublingual 0.4 mg SL Q5M PRN (Reason: chest pain) Qty: 25 RF: 2 multivitamin tablet 1 tab PO DAILY RF: 0 omega-3 fatty acids [Fish Oil Concentrate] 1,000 mg capsule 1,000 mg PO DAILY RF: 0 aspirin [Adult Low Dose Aspirin] 81 mg tablet,delayed release (DR/EC) 81 mg PO DAILY Qty: 30 RF: 2 isosorbide mononitrate 30 mg tablet extended release 24 hr 30 mg PO DAILY Qty: 90 RF: 3 calcium carbonate-vitamin D3 600 mg-5 mcg (200 unit) Tablet 1 tab PO DAILY RF: 0 losartan 50 mg tablet 50 mg PO DAILY RF: 0 alum-mag hydroxide-simeth 200-200-20 mg/5 mL Suspension 0 ml PO Q6H PRN (Reason: Indigestion) RF: 0 Discharge Orders: Discharge Order (Routine); Ordered 05/20/21 Ordered By: Luba Castellanos Admission Data Admit Date/Time: 05/19/21 17:07 Attending Provider: Luba Castellanos Admit Provider: Luba Castellanos Primary Care Provider: Som Che Other Providers: Luba Castellanos ; Jl Seymour Coding Level of Care Code D/C DAY MANAGEMENT >30 MINS Diagnoses Chest pain R07.9 S/P CABG x 2 Z95.1 HTN (hypertension) I10 Hypertension type: essential hypertension
[2021-05-20 12:48] VITALS: PULSE 61
--- NOTE | 2021-05-20 21:22 | Electrocardiogram Report ---
Test Reason : Blood Pressure : / mmHG Vent. Rate : 062 BPM Atrial Rate : 062 BPM P-R Int : 182 ms QRS Dur : 074 ms QT Int : 416 ms P-R-T Axes : 059 -01 038 degrees QTc Int : 422 ms Poor data quality, interpretation may be adversely affected Normal sinus rhythm Normal ECG When compared with ECG of 19-MAY-2021 15:16, No significant change was found Confirmed by Jl Seymour ([id number]) on 05/20/2021 9:21:21 PM Referred By: REFERRED SELF Confirmed By:Jl Seymour
== END 2021-05-20 13:02 | disposition home or self-care (01) ==
LOC: ED 15:04 → EDINP 15:04 → 2N 20:00

== ENCOUNTER 2023-08-28 16:10 | Inpatient (IN) ==
--- NOTE | 2023-08-28 17:22 | Emergency Department Note ---
Impression & Plan Acute constipation, Fecal impaction, Acute confusion ED Provider Note HISTORY OF PRESENT ILLNESS: Patient is an 88-year-old male presenting with abdominal pain. History is obtained from daughter and , given patient's dementia. They report that the patient has a history of constipation. They are unsure when his last bowel movement was. They state that this morning the patient has been claiming he has lower abdominal pain and seems to be very uncomfortable with any sort of movement and with being seated. gave the patient multiple stool softeners this morning and tried to give the patient an enema but no significant rectal output was achieved. No history of abdominal surgeries. Patient denies any nausea. Family reports he has not vomited. No reported fevers. Family reports the patient is not on any opioid medications. ROS: as above PHYSICAL EXAM: Constitutional: Patient appears in no acute distress. HENT: Head: Normocephalic and atraumatic. Eyes: EOMI, PERRL Mouth/Throat: Mucous membranes moist. Neck: Trachea midline. Neck supple. Cardiovascular: RRR, No murmurs, rubs or gallops. Intact distal pulses. Pulmonary/Chest: No respiratory distress. Breath sounds clear and equal bilaterally. No wheezes or rales. Abdominal: Abdomen soft, no rebound or guarding. Generalized tenderness to palpation. Musculoskeletal: No edema, tenderness or deformity noted. Skin: Warm and dry. No rash, erythema, pallor or cyanosis Neurological: Alert. CN II-XII grossly intact, moving all extremities equally and fully. MDM: - Vitals signs showed significant hypertension. On reassessment in the examination room, the patient is no longer having an acute pain episode and his repeat blood pressure was 167 systolic. - History obtained via patient's family, given patient's dementia. History as above. - Chronic conditions affecting care: BPH; HLD; HTN; CAD - Differential diagnoses include, but are not limited to: small bowel obstruction; constipation; fecal impaction; intussusception; appendicitis; diverticulitis - Order placed for continuous cardiac monitoring. At this time, monitor showed rate of 92 bpm with normal sinus rhythm, per my interpretation. - External medical records reviewed. Pain management visit note dated 06/23/2023 was reviewed. Patient follows in their clinic for history of lumbar fusion, bilateral sacroiliitis and fibromyalgia. - Laboratory workup interpreted by myself showed leukocytosis (WBC 14.41) with left shift; stable electrolytes; normal lipase - Patient given 25 mcg IV fentanyl for pain control on arrival. - CT abdomen/pelvis wo contrast showed large stool burden and fecal retention per radiology - Discussed results with patient and his family. They were agreeable to enemas to attempt to pass and break up the fecal stool ball in the rectum. He was given a milk of molasses enema with minimal output. A repeat milk of molasses enema was given with minimal liquid stool. He was then given a soapsuds enema with some liquid stool output. However, the patient started complaining of significant pain and discomfort and was becoming more agitated. He was given an additional 25 mcg of IV fentanyl. He became increasingly agitated and was given 0.5 mg of IV Ativan. He did calm down but his abdomen appeared to be more distended. A KUB was obtained which showed concern for worsening bowel gas pattern, but no evidence of pneumoperitoneum. However, a repeat CT abdomen/pelvis was obtained to ascertain why the bowel gas pattern was worsening and the patient was having worsening pain. Patient was given 0.5 mg of IV Ativan for further sedation and management in order to facilitate obtaining a repeat CT scan. However, patient became increasingly agitated and not feel comfortable laying flat. He seems very distressed with his oozing of liquid stool after his enema. - Discussion was had with supportive employment case manager about patient's case and need for admission - Hospitalist consulted for admission for further bowel cleanout and potential GI consultation. - Patient admitted to [facility] service for further evaluation and management. ASSESSMENT AND PLAN: Diagnosis: Constipation; fecal impaction; confusion Plan: admit Past Med/Surg History Medical History Myofascial low back pain Bilateral sacroiliitis Leg length discrepancy Chest pain Arthritis of right hip Cardiac device in situ Paroxysmal atrial tachycardia Seborrheic keratosis 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 Lumbar canal stenosis Atrial premature complexes Heart palpitations SHERRY (obstructive sleep apnea) Coronary artery disease HTN (hypertension) Fibromyalgia Dyslipidemia Chest pain BPH (benign prostatic hyperplasia) Surgical History S/P CABG x 2 History of kidney surgery History of tonsillectomy and adenoidectomy S/P CABG (coronary artery bypass graft) CABG x2 in 2006: LARIOS-LAD, SVG-OM2 History of lumbar fusion L5-S1 Family History Unknown Diabetes Hypertension Heart disease Mother Renal failure Family/Other Meniere's disease Father Myocardial infarction Denies family history of Ovarian cancer Prostate cancer Breast cancer Colorectal cancer Social History Smoking Status: Never smoker Tobacco Type: Pipe Age Started Using Tobacco: 17; Age Quit Using Tobacco: 22; Second Hand Exposure: No; Do You Dip or Chew Tobacco: No; Hx Alcohol Use: Yes Alcohol type: beer Alcohol Intake Frequency: Monthly or Less Hx Substance Use: No Preferred Language: Macedonian Communication Ability: Impaired Communication Ability Comment: very hard of hearing. Visual Impairment: Limited Hearing Ability: Use of Hearing Aid [place] Machine Operator Required: No Beliefs That Will Affect Care: None marital status: Current Living Situation: Spouse Current Living Situation Comment: home with . current occupational status: retired How many Children do You have: 1 Feels Safe at Home: Yes Childhood Exposure to Second-Hand Smoke: No Diet: regular caffeine: No Dental Care, Regularly: Yes Physical Activity Frequency: 5-6 Times per Week Physical Activity Frequency Comment: walks daily weather permitting Seatbelt Use: always Sunscreen Use: Yes Do you think of yourself as: straight/heterosexual Assistive Devices: Glasses and Hearing Aid - Bilateral Allergies Allergies Allergy/AdvReac Type Severity Reaction Status Date / Time Sulfa (Sulfonamide Allergy Unknown Unknown Verified 08/28/23 20:24 Antibiotics) celecoxib AdvReac Severe hypertensio Verified 08/28/23 20:24 n rofecoxib AdvReac Severe hypertensio Verified 08/28/23 20:24 n indomethacin AdvReac Intermediate syncope Verified 08/28/23 20:24 lactose AdvReac Intermediate DIARRHEA Verified 08/28/23 20:24 [id number] Reductase AdvReac Unknown Verified 08/28/23 20:24 Inhibitor [[id number]-Bdw-Kjy Reductase Inhibitor] Home Meds Home Medications Medication Instructions Recorded Confirmed multivitamin 1 tab PO DAILY 02/19/19 08/28/23 omega-3 fatty acids 1,000 mg 1,000 mg PO DAILY 03/18/19 08/28/23 capsule (Fish Oil Concentrate) aluminum-mag hydroxide-simethicone 0 ml PO Q6H PRN Indigestion 05/19/21 08/28/23 200 mg-200 mg-20 mg/5 mL oral susp calcium carbonate 600 mg-vitamin 1 tab PO DAILY 05/19/21 08/28/23 D3 5 mcg (200 unit) tablet acetaminophen 325 mg tablet 650 mg PO QID PRN Pain 08/28/23 08/28/23 (Tylenol) losartan 50 mg tablet 50 mg PO DAILY 08/28/23 08/28/23 Previous Rx's Medication Instructions Recorded aspirin 81 mg tablet,delayed 81 mg PO DAILY #30 tabs 03/18/19 release (Adult Low Dose Aspirin) nitroglycerin 0.4 mg sublingual 0.4 mg sublingual Q5M PRN chest 05/31/22 tablet pain #25 tabs Results & Data (ED) Vital Signs Vital Signs - 24 hr 08/28/23 16:27 08/28/23 16:51 08/28/23 17:00 Temperature 36.8 C Temperature Source Temporal Artery Scan Pulse Rate 63 62 77 Pulse Rate from SpO2 Sensor Respiratory Rate 18 29 H 24 Respiratory Effort / Characteristics Non-Labored Spontaneous Respiratory Depth Normal Respiratory Pattern Regular Blood Pressure 213/98 H Blood Pressure Mean 136 Blood Pressure Position Sitting Pulse Oximetry 98 Oxygen Delivery Method Room Air Sepsis Recent Fever Within 48 Hours No Sepsis New/Unexplained Change in Mental Status N/A Sepsis Action Taken by Nursing No Action Required 08/28/23 17:05 08/28/23 17:20 08/28/23 17:36 Temperature Temperature Source Pulse Rate 61 66 65 Pulse Rate from SpO2 Sensor Respiratory Rate 28 H 28 H Respiratory Effort / Characteristics Respiratory Depth Respiratory Pattern Blood Pressure Blood Pressure Mean Blood Pressure Position Pulse Oximetry Oxygen Delivery Method Sepsis Recent Fever Within 48 Hours Sepsis New/Unexplained Change in Mental Status Sepsis Action Taken by Nursing 08/28/23 17:40 08/28/23 17:50 08/28/23 18:00 Temperature Temperature Source Pulse Rate 64 60 58 L Pulse Rate from SpO2 Sensor Respiratory Rate 17 16 17 Respiratory Effort / Characteristics Respiratory Depth Respiratory Pattern Blood Pressure 167/80 H Blood Pressure Mean 109 Blood Pressure Position Pulse Oximetry Oxygen Delivery Method Sepsis Recent Fever Within 48 Hours Sepsis New/Unexplained Change in Mental Status Sepsis Action Taken by Nursing 08/28/23 18:10 08/28/23 18:11 08/28/23 18:20 Temperature Temperature Source Pulse Rate 61 63 Pulse Rate from SpO2 Sensor Respiratory Rate 18 24 Respiratory Effort / Characteristics Respiratory Depth Respiratory Pattern Blood Pressure Blood Pressure Mean Blood Pressure Position Pulse Oximetry 97 Oxygen Delivery Method Room Air Sepsis Recent Fever Within 48 Hours Sepsis New/Unexplained Change in Mental Status Sepsis Action Taken by Nursing 08/28/23 18:30 08/28/23 18:35 08/28/23 18:35 Temperature Temperature Source Pulse Rate 62 63 Pulse Rate from SpO2 Sensor 64 Respiratory Rate 21 15 Respiratory Effort / Characteristics Respiratory Depth Respiratory Pattern Blood Pressure 187/92 H Blood Pressure Mean 132 Blood Pressure Position Pulse Oximetry 97 Oxygen Delivery Method Sepsis Recent Fever Within 48 Hours Sepsis New/Unexplained Change in Mental Status Sepsis Action Taken by Nursing 08/28/23 18:40 08/28/23 19:00 08/28/23 20:35 Temperature Temperature Source Pulse Rate 62 61 65 Pulse Rate from SpO2 Sensor 61 61 Respiratory Rate 28 H 28 H 20 Respiratory Effort / Characteristics Respiratory Depth Respiratory Pattern Blood Pressure Blood Pressure Mean Blood Pressure Position Pulse Oximetry 97 96 Oxygen Delivery Method Sepsis Recent Fever Within 48 Hours Sepsis New/Unexplained Change in Mental Status Sepsis Action Taken by Nursing 08/28/23 20:51 08/28/23 21:19 08/28/23 21:36 Temperature Temperature Source Pulse Rate 81 77 Pulse Rate from SpO2 Sensor 67 Respiratory Rate 26 H Respiratory Effort / Characteristics Respiratory Depth Respiratory Pattern Blood Pressure Blood Pressure Mean Blood Pressure Position Pulse Oximetry 96 Oxygen Delivery Method Sepsis Recent Fever Within 48 Hours Sepsis New/Unexplained Change in Mental Status Sepsis Action Taken by Nursing 08/28/23 21:37 08/28/23 21:37 08/28/23 22:00 Temperature Temperature Source Pulse Rate 89 Pulse Rate from SpO2 Sensor Respiratory Rate 21 Respiratory Effort / Characteristics Respiratory Depth Respiratory Pattern Blood Pressure 231/102 H 198/112 H Blood Pressure Mean 139 151 Blood Pressure Position Pulse Oximetry Oxygen Delivery Method Sepsis Recent Fever Within 48 Hours Sepsis New/Unexplained Change in Mental Status Sepsis Action Taken by Nursing 08/28/23 22:00 Temperature Temperature Source Pulse Rate 92 H Pulse Rate from SpO2 Sensor Respiratory Rate 41 H Respiratory Effort / Characteristics Respiratory Depth Respiratory Pattern Blood Pressure Blood Pressure Mean Blood Pressure Position Pulse Oximetry Oxygen Delivery Method Sepsis Recent Fever Within 48 Hours Sepsis New/Unexplained Change in Mental Status Sepsis Action Taken by Nursing Laboratory Data 08/28/23 18:31 08/28/23 18:31 Lab Results 08/28/23 Range/Units 18:31 WBC 14.41 H (4.8-10.8) K/ul RBC 4.73 (4.70-6.10) M/uL Hgb 15.4 (14.0-18.0) g/dl Hct 43.5 (42.0-52.0) % MCV 92.0 (80.0-100.0) fL MCH 32.6 (25.0-34.0) pg MCHC 35.4 (32.0-36.0) g/dL RDW Std Deviation 42.8 (36.4-46.3) fL RDW Coeff of Carlos 12.7 (11.5-14.5) % Plt Count 198 (130-400) K/uL MPV 12.8 H (9.4-12.4) fL Immature Gran % (Auto) 0.2 % Neut % (Auto) 83.9 % Lymph % (Auto) 8.1 % [place] % (Auto) 7.2 % Eos % (Auto) 0.3 % Baso % (Auto) 0.3 % Neut # (Auto) 12.08 H (1.40-6.50) K/uL Lymph # (Auto) 1.17 L (1.20-3.40) K/uL [place] # (Auto) 1.04 H (0.11-0.59) K/uL Eos # (Auto) 0.05 (0.00-0.50) K/uL Baso # (Auto) 0.04 (0.00-0.20) K/uL Immature Gran # (Auto) 0.03 (0.01-0.20) K/uL Sodium 137 (136-145) mmol/L Potassium 3.7 (3.5-5.1) mmol/L Chloride 104 (98-107) mmol/L Carbon Dioxide 26 (21-32) mmol/L Anion Gap 7 (3-11) BUN 26 H (6-23) mg/dl Creatinine 0.90 (0.6-1.4) mg/dl Est Cr Clr Drug Dosing 47.4 ml/min Est GFR ( Amer) 89.3 ml/min Est GFR (Non-Af Amer) 77.1 ml/min BUN/Creatinine Ratio 28.9 H (10-20) Glucose 111 H (70-99(Fasting)) mg/dl Lactate 0.9 (0.4-2.0) mmol/L Calcium 9.0 (8.6-10.3) mg/dl Total Bilirubin 0.4 (0.2-1.0) mg/dl AST 21 (13-39) U/L ALT 15 (7-52) U/L Alkaline Phosphatase 69 (34-104) U/L Total Protein 6.7 (6.0-8.3) gm/dl Albumin 4.2 (3.4-5.0) gm/dl Globulin 2.5 (2.5-4.0) gm/dl Albumin/Globulin Ratio 1.7 (0.9-2) Lipase 15 (11-82) U/L Administered Medications Discontinued Medications Fentanyl Citrate (Fentanyl Citrate Pf 100 Mcg/2 Ml Vial) 25 mcg IV NOW ONE Stop: 08/28/23 17:21 Last Admin: 08/28/23 18:31 Dose: 25 mcg Documented By: ACC Fentanyl Citrate (Fentanyl Citrate Pf 100 Mcg/2 Ml Vial) 25 mcg IV NOW ONE Stop: 08/28/23 20:40 Last Admin: 08/28/23 20:47 Dose: 25 mcg Documented By: ACC Lorazepam (Lorazepam 1 Mg/1 Ml Syr Ed Inj Use) 0.5 mg IV ONE STA Stop: 08/28/23 21:42 Last Admin: 08/28/23 21:45 Dose: 0.5 mg Documented By: ACC Lorazepam (Lorazepam 1 Mg/1 Ml Syr Ed Inj Use) 0.5 mg IV ONE STA Stop: 08/28/23 22:21 Last Admin: 08/28/23 22:28 Dose: 0.5 mg Documented By: ACC Imaging Data Radiologist's Impression: Abdomen/Pelvis CT 08/28/23 16:31 CT abd pelvis wo con CLINICAL HISTORY: abd pain; constipation TECHNIQUE: Helical axial images of the abdomen and pelvis were obtained. Automated dose lowering techniques and/or adjustment according to patient size were utilized for this exam. This exam was performed without intravenous contrast. CT DOSE: 729.6 mGy.cm COMPARISON: Comparison is made to CT abdomen pelvis 05/08/2016 FINDINGS: Lower chest: Bibasilar atelectasis versus scarring is seen. Liver: Unremarkable. No focal lesions are seen. Gallbladder and biliary tree: No calcified gallstones. Normal caliber wall. No intra- or extrahepatic biliary ductal dilation. Pancreas: Unremarkable, no focal lesions. Spleen: Unremarkable. Adrenals: Unremarkable. Kidneys and ureters: Unremarkable. Bladder: Unremarkable. Reproductive organs: Prostatic calcifications are seen which may represent prior hemorrhage or granulomatous disease. Bowel: Prominent stool ball is seen in the rectum without wall thickening or definite inspissation. A large stool burden is seen. The appendix is normal. Lymph nodes Retroperitoneal: Unremarkable. Pelvic: Unremarkable. Mesenteric: Unremarkable. Peritoneum: Normal. Vessels: Atherosclerotic calcifications are seen. Abdominal wall: Unremarkable. Bones: Degenerative changes in the visualized spine. Posterior fixation hardware spans L5-S1. IMPRESSION: Large stool burden without evidence of cervical colitis. A prominent rectal stool ball is noted. ACT 112: Negative or not required by law. Electronically signed by: Devonte Sprague M.D. 08/28/2023 6:17 PM Discharge Plan Visit Data Chief Complaint: Abdominal Pain Stated Complaint: ABD PAIN,CONSTIPATION ED Provider: Agatha Mendieta Discharge Problem: Acute constipation, Fecal impaction, Acute confusion Forms Stand Alone Forms: My [facility] Prescriptions Prescriptions: No Action nitroglycerin 0.4 mg tablet, sublingual 0.4 mg SL Q5M PRN (Reason: chest pain) Qty: 25 5RF Rx Instructions: q5min for up to 3 doses prn multivitamin tablet 1 tab PO DAILY omega-3 fatty acids [Fish Oil Concentrate] 1,000 mg capsule 1,000 mg PO DAILY aspirin [Adult Low Dose Aspirin] 81 mg tablet,delayed release (DR/EC) 81 mg PO DAILY Qty: 30 2RF calcium carbonate-vitamin D3 600 mg-5 mcg (200 unit) Tablet 1 tab PO DAILY alum-mag hydroxide-simeth 200-200-20 mg/5 mL Suspension 0 ml PO Q6H PRN (Reason: Indigestion) acetaminophen [Tylenol] 325 mg Tablet 650 mg PO QID PRN (Reason: Pain) losartan 50 mg tablet 50 mg PO DAILY Rx Instructions: TAKE 1 TABLET BY MOUTH ONCE DAILY Referrals Referrals: Kedar Yeung DO [Primary Care Provider] -
--- NOTE | 2023-08-28 18:19 | CT Scan Report ---
CT abd pelvis wo con CLINICAL HISTORY: abd pain; constipation TECHNIQUE: Helical axial images of the abdomen and pelvis were obtained. Automated dose lowering tech niques and/or adjustment according to patient size were utilized for this exam. This exam was perfor med without intravenous contrast. CT DOSE: 729.6 mGy.cm COMPARISON: Comparison is made to CT abdomen pelvis 05/08/2016 FINDINGS: Lower chest: Bibasilar atelectasis versus scarring is seen. Liver: Unremarkable. No focal lesions are seen. Gallbladder and biliary tree: No calcified gallstones. Normal caliber wall. No intra- or extrahepatic biliary ductal dilation. Pancreas: Unremarkable, no focal lesions. Spleen: Unremarkable. Adrenals: Unremarkable. Kidneys and ureters: Unremarkable. Bladder: Unremarkable. Reproductive organs: Prostatic calcifications are seen which may represent prior hemorrhage or granul omatous disease. Bowel: Prominent stool ball is seen in the rectum without wall thickening or definite inspissation. A large stool burden is seen. The appendix is normal. Lymph nodes Retroperitoneal: Unremarkable. Pelvic: Unremarkable. Mesenteric: Unremarkable. Peritoneum: Normal. Vessels: Atherosclerotic calcifications are seen. Abdominal wall: Unremarkable. Bones: Degenerative changes in the visualized spine. Posterior fixation hardware spans L5-S1. IMPRESSION: Large stool burden without evidence of cervical colitis. A prominent rectal stool ball is noted. ACT 112: Negative or not required by law. Electronically signed by: Devonte Sprague M.D. 08/28/2023 6:17 PM
[2023-08-28] MEDS: fentaNYL citrate PF 100 MCG/2 ML VIAL IV ONE ×2 (18:31→20:47)
[2023-08-28 18:54] LABS: Basophils # (auto) 0.04 K/uL (0.00-0.20); Basophils % (auto) 0.3 %; Eosinophils # (auto) 0.05 K/uL (0.00-0.50); Eosinophils % (auto) 0.3 %; Hematocrit (blood only) 43.5 % (42.0-52.0); Hemoglobin 15.4 g/dl (14.0-18.0); Immature Granulocytes # (auto) 0.03 K/uL (0.01-0.20); Immature Granulocytes % (auto) 0.2 %; Lymphocytes # (auto) 1.17 K/uL (1.20-3.40); Lymphocytes % (auto) 8.1 %; Mean Corpuscular Hemoglobin 32.6 pg (25.0-34.0); Mean Corpuscular Hgb Conc 35.4 g/dL (32.0-36.0); Mean Platelet Volume 12.8 fL (9.4-12.4); Monocytes # (auto) 1.04 K/uL (0.11-0.59); Monocytes % (auto) 7.2 %; Neutrophils # (auto) 12.08 K/uL (1.40-6.50); Neutrophils % (auto) 83.9 %; Platelet Count 198 K/uL (130-400); RDW Coefficient of Variation 12.7 % (11.5-14.5); RDW Standard Deviation 42.8 fL (36.4-46.3); Red Blood Count 4.73 M/uL (4.70-6.10); White Blood Count 14.41 K/ul (4.8-10.8)
[2023-08-28 19:11] LABS: Albumin Globulin Ratio 1.7 (0.9-2); Albumin Level 4.2 gm/dl (3.4-5.0); BUN Creatinine Ratio 28.9 (10-20); Bilirubin,Total 0.4 mg/dl (0.2-1.0); Creatinine Clr Calc Pharmacy 47.4 ml/min; Est GFR (African American) 89.3 ml/min; Est GFR (Non-African American) 77.1 ml/min; Globulin 2.5 gm/dl (2.5-4.0); Potassium 3.7 mmol/L (3.5-5.1); Total Protein 6.7 gm/dl (6.0-8.3)
[2023-08-28] MEDS: LORazepam 1 MG/1 ML SYR ED Inj Use IV STA ×2 (21:45→22:28)
--- NOTE | 2023-08-29 00:38 | History & Physical Report ---
Date of Service August 29, 2023 Assessment & Plan (1) Acute confusion: (2) Dementia: (3) Agitation: (4) Fecal impaction: (5) Acute constipation: (6) GERD (gastroesophageal reflux disease): (7) Coronary artery disease: (8) SHERRY (obstructive sleep apnea): (9) HTN (hypertension): Plan Acute confusion/dementia with agitation-- Possible etiologies include but not limited to: Constipation/fecal impaction/dehydration, progression of underlying dementia, abdominal pain, urinary tract infection Patient was in particular noted to be agitated as he was having bowel movements while in the ED He received fentanyl 25 mcg IV x 2, and lorazepam 0.5 mg IV x 2 from the ED Zyprexa 5 mg IM every 6 hours as needed for agitation Constipation/fecal impaction/abdominal pain- CT scan abdomen pelvis with fecal impaction, without signs of stercoral colitis Patient received bowel regimen from the ED, with moderate effects Patient was observed to have significant agitation when having a bowel movement Zyprexa 5 mg IM every 6 hours as needed LR at 80 mL/h x 1 L Acetaminophen 1 g IV every 8 hours as needed for mild pain or fever Hold on any further bowel regimen Dehydration- IV fluids as noted above Follow serial laboratories History of Present Illness Chief Complaint: The patient was brought to the emergency department due to concerns regarding abdominal pain with history of constipation, and worsening confusion that family notes with similar presentations in the past. Primary Care Provider: Kedar Yeung DO The patient is an 88-year-old male with a past medical history including dementia, GERD, paroxysmal atrial tachycardia, CAD, dyslipidemia, SHERRY and hypertension. The patient presented to the emergency department accompanied by his daughter and , who supply all the patient's information, as he is unable to due to dementia and confusion with agitation. The patient was noted in the emergency department to be severely constipated, as noted by examination and imaging, and did have treatment with enemas while in the ED. He did start to have frequent bowel movements after the stimulation, and with each bowel moveme nt became severely agitated. Allergies Allergy/AdvReac Type Severity Reaction Status Date / Time Sulfa (Sulfonamide Allergy Unknown Unknown Verified 08/28/23 20:24 Antibiotics) celecoxib AdvReac Severe hypertensio Verified 08/28/23 20:24 n rofecoxib AdvReac Severe hypertensio Verified 08/28/23 20:24 n indomethacin AdvReac Intermediate syncope Verified 08/28/23 20:24 lactose AdvReac Intermediate DIARRHEA Verified 08/28/23 20:24 Bfwuytm-OXD-YoH Reductase AdvReac Unknown Verified 08/28/23 20:24 Inhibitor [Eewknjf-Nvw-Zlg Reductase Inhibitor] Home Medications Medication Instructions Recorded Confirmed Type multivitamin 1 tab PO DAILY 02/19/19 08/28/23 History aspirin 81 mg tablet,delayed 81 mg PO DAILY #30 tabs 03/18/19 08/28/23 Rx release (Adult Low Dose Aspirin) omega-3 fatty acids 1,000 mg 1,000 mg PO DAILY 03/18/19 08/28/23 History capsule (Fish Oil Concentrate) aluminum-mag hydroxide-simethicone 0 ml PO Q6H PRN Indigestion 05/19/21 08/28/23 History 200 mg-200 mg-20 mg/5 mL oral susp calcium carbonate 600 mg-vitamin 1 tab PO DAILY 05/19/21 08/28/23 History D3 5 mcg (200 unit) tablet nitroglycerin 0.4 mg sublingual 0.4 mg sublingual Q5M PRN chest 05/31/22 08/28/23 Rx tablet pain #25 tabs acetaminophen 325 mg tablet 650 mg PO QID PRN Pain 08/28/23 08/28/23 History (Tylenol) losartan 50 mg tablet 50 mg PO DAILY 08/28/23 08/28/23 History Past Med/Surg History Medical History (Updated 08/29/23 @ 04:37 by Rafiq Leyva MD) Dementia Myofascial low back pain Bilateral sacroiliitis Leg length discrepancy Chest pain Arthritis of right hip Cardiac device in situ Paroxysmal atrial tachycardia Seborrheic keratosis 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 Lumbar canal stenosis Atrial premature complexes Heart palpitations SHERRY (obstructive sleep apnea) Coronary artery disease HTN (hypertension) Fibromyalgia Dyslipidemia Chest pain BPH (benign prostatic hyperplasia) Surgical History S/P CABG x 2 History of kidney surgery History of tonsillectomy and adenoidectomy S/P CABG (coronary artery bypass graft) CABG x2 in 2005: LARIOS-LAD, SVG-OM2 History of lumbar fusion L5-S1 Family History Unknown Diabetes Hypertension Heart disease Mother Renal failure Family/Other Meniere's disease Father Myocardial infarction Denies family history of Ovarian cancer Prostate cancer Breast cancer Colorectal cancer Social History Smoking Status: Never smoker Tobacco Type: Pipe Age Started Using Tobacco: 17; Age Quit Using Tobacco: 22; Second Hand Exposure: No; Do You Dip or Chew Tobacco: No; Hx Alcohol Use: Yes Alcohol type: beer Alcohol Intake Frequency: Monthly or Less Hx Substance Use: No Preferred Language: Wolof Communication Ability: Impaired Communication Ability Comment: very hard of hearing. Visual Impairment: Limited Hearing Ability: Use of Hearing Aid Toy Consultant Required: No Beliefs That Will Affect Care: None marital status: Current Living Situation: Spouse Current Living Situation Comment: home with . current occupational status: retired How many Children do You have: 1 Feels Safe at Home: Yes Childhood Exposure to Second-Hand Smoke: No Diet: regular caffeine: No Dental Care, Regularly: Yes Physical Activity Frequency: 5-6 Times per Week Physical Activity Frequency Comment: walks daily weather permitting Seatbelt Use: always Sunscreen Use: Yes Do you think of yourself as: straight/heterosexual Assistive Devices: Glasses and Hearing Aid - Bilateral Review of Systems Review of Systems: Patient is unable to contribute to HPI or review of systems due to underlying dementia and worsening confusion and agitation Physical Exam Physical Exam: The patient is nonresponsive, well developed and well nourished, normocephalic and atraumatic, lying in bed and in significant distress and agitation during bowel movements HEENT--PERRL, EOMI, mucous membranes and oropharynx dry. Neck--supple. No JVD. No bruits. Thyroid normal, trachea midline, no adenopathy. Heart--normal S1 and S2. No murmurs, rubs or gallops. Lungs--clear bilaterally, no respiratory distress, no accessory muscle use. Abdomen--normal bowel sounds, generalized tenderness, mildly distended. Extremities--=No edema. Dermatologic--normal skin turgor, normal color, no abnormal lymph nodes, no rash. Neurologic--cranial nerves II through XII grossly intact. Rheumatologic--limited exam Psychiatric--nonresponsive, agitated during bowel movements Results & Data Results & Data Vital Signs (Past 12 Hours) Vital Signs Temp Pulse Resp BP Pulse Ox O2 Del Method 08/28/23 22:00 92 H 41 H 08/28/23 22:00 198/112 H 08/28/23 21:37 89 21 08/28/23 21:37 231/102 H 08/28/23 21:36 77 26 H 08/28/23 21:19 96 08/28/23 20:51 81 08/28/23 20:35 65 20 08/28/23 19:00 61 28 H 96 08/28/23 18:40 62 28 H 97 08/28/23 18:35 63 15 97 08/28/23 18:35 187/92 H 08/28/23 18:30 62 21 08/28/23 18:20 63 24 08/28/23 18:11 97 Room Air 08/28/23 18:10 61 18 08/28/23 18:00 58 L 17 08/28/23 17:50 60 16 08/28/23 17:40 64 17 167/80 H 08/28/23 17:36 65 28 H 08/28/23 17:20 66 28 H 08/28/23 17:05 61 08/28/23 17:00 77 24 08/28/23 16:51 62 29 H 08/28/23 16:27 36.8 C 63 18 213/98 H 98 Room Air Laboratory Results Laboratory Results WBC 14.41 K/ul (4.8-10.8) H 08/28/23 18:31 RBC 4.73 M/uL (4.70-6.10) 08/28/23 18:31 Hgb 15.4 g/dl (14.0-18.0) 08/28/23 18:31 Hct 43.5 % (42.0-52.0) 08/28/23 18:31 MCV 92.0 fL (80.0-100.0) 08/28/23 18:31 MCH 32.6 pg (25.0-34.0) 08/28/23 18:31 MCHC 35.4 g/dL (32.0-36.0) 08/28/23 18:31 RDW Std Deviation 42.8 fL (36.4-46.3) 08/28/23 18: RDW Coeff of Carlos 12.7 % (11.5-14.5) 08/28/23 18: Plt Count 198 K/uL (130-400) 08/28/23 18: MPV 12.8 fL (9.4-12.4) H 08/28/23 18:31 Immature Gran % (Auto) 0.2 % 08/28/23 18: Neut % (Auto) 83.9 % 08/28/23 18: Lymph % (Auto) 8.1 % 08/28/23 18: Hayes % (Auto) 7.2 % 08/28/23 18: Eos % (Auto) 0.3 % 08/28/23 18: Baso % (Auto) 0.3 % 08/28/23 18: Neut # (Auto) 12.08 K/uL (1.40-6.50) H 08/28/23 18: Lymph # (Auto) 1.17 K/uL (1.20-3.40) L 08/28/23 18:31 Hayes # (Auto) 1.04 K/uL (0.11-0.59) H 08/28/23 18:31 Eos # (Auto) 0.05 K/uL (0.00-0.50) 08/28/23 18: Baso # (Auto) 0.04 K/uL (0.00-0.20) 08/28/23 18: Immature Gran # (Auto) 0.03 K/uL (0.01-0.20) 08/28/23 18: Sodium 137 mmol/L (136-145) 08/28/23 18: Potassium 3.7 mmol/L (3.5-5.1) 08/28/23 18: Chloride 104 mmol/L (98-107) 08/28/23 18: Carbon Dioxide 26 mmol/L (21-32) 08/28/23 18: Anion Gap 7 (3-11) 08/28/23 18: BUN 26 mg/dl (6-23) H 08/28/23 18: Creatinine 0.90 mg/dl (0.6-1.4) 08/28/23 18:31 Est Cr Clr Drug Dosing 47.4 ml/min 08/28/23 18:31 Est GFR ( Amer) 89.3 ml/min 08/28/23 18:31 Est GFR (Non-Af Amer) 77.1 ml/min 08/28/23 18:31 BUN/Creatinine Ratio 28.9 (10-20) H 08/28/23 18:31 Glucose 111 mg/dl (70-99(Fasting)) H 08/28/23 18:31 Lactate 0.9 mmol/L (0.4-2.0) 08/28/23 18:31 Calcium 9.0 mg/dl (8.6-10.3) 08/28/23 18:31 Total Bilirubin 0.4 mg/dl (0.2-1.0) 08/28/23 18:31 AST 21 U/L (13-39) 08/28/23 18:31 ALT 15 U/L (7-52) 08/28/23 18:31 Alkaline Phosphatase 69 U/L (34-104) 08/28/23 18:31 Total Protein 6.7 gm/dl (6.0-8.3) 08/28/23 18:31 Albumin 4.2 gm/dl (3.4-5.0) 08/28/23 18:31 Globulin 2.5 gm/dl (2.5-4.0) 08/28/23 18:31 Albumin/Globulin Ratio 1.7 (0.9-2) 08/28/23 18:31 Lipase 15 U/L (11-82) 08/28/23 18:31 Impressions Abdomen/Pelvis CT 08/28/23 16:31 CT abd pelvis wo con CLINICAL HISTORY: abd pain; constipation TECHNIQUE: Helical axial images of the abdomen and pelvis were obtained. Automated dose lowering techniques and/or adjustment according to patient size were utilized for this exam. This exam was performed without intravenous c ontrast. CT DOSE: 729.6 mGy.cm COMPARISON: Comparison is made to CT abdomen pelvis 05/08/2016 FINDINGS: Lower chest: Bibasilar atelectasis versus scarring is seen. Liver: Unremarkable. No focal lesions are seen. Gallbladder and biliary tree: No calcified gallstones. Normal caliber wall. No intra- or extrahepatic biliary ductal dilation. Pancreas: Unremarkable, no focal lesions. Spleen: Unremarkable. Adrenals: Unremarkable. Kidneys and ureters: Unremarkable. Bladder: Unremarkable. Reproductive organs: Prostatic calcifications are seen which may represent prior hemorrhage or granulomatous disease. Bowel: Prominent stool ball is seen in the rectum without wall thickening or definite inspissation. A large stool burden is seen. The appendix is normal. Lymph nodes Retroperitoneal: Unremarkable. Pelvic: Unremarkable. Mesenteric: Unremarkable. Peritoneum: Normal. Vessels: Atherosclerotic calcifications are seen. Abdominal wall: Unremarkable. Bones: Degenerative changes in the visualized spine. Posterior fixation hardware spans L5-S1. IMPRESSION: Large stool burden without evidence of cervical colitis. A prominent rectal stool ball is noted. ACT 112: Negative or not required by law. Electronically signed by: Devonte Sprague M.D. 08/28/2023 6:17 PM Code Status & VTE Plan Code Status DNR/DNI VTE Prophylaxis Plan VTE Prophylaxis will be ordered: Yes PG Care Time/CCT Total # of Minutes Spent Total Time Spent with Patient: Total time spent is greater than 50% in coordination of care (as documented) at patient's floor/unit and/or counseling patient: Coding Level of Care Code 15410 INT INP/OBS CARE 2/55MIN Diagnoses Acute confusion R41.0 Dementia F03.90 Agitation R45.1 Fecal impaction K56.41 Acute constipation K59.00 GERD (gastroesophageal reflux disease) K21.9 Coronary artery disease involving [place] coronary artery of [place] heart without angina pectoris I25.10 Coronary Disease-Associated Artery/Lesion type: [place] artery [place] vs. transplanted heart: [place] heart Associated angina: without angina SHERRY (obstructive sleep apnea) G47.33 Essential hypertension I10 Hypertension type: essential hypertension (7) Coronary artery disease Coronary Disease-Associated Artery/Lesion type: [place] artery [place] vs. transplanted heart: [place] heart Associated angina: without angina Qualified Code(s): I25.10 - Atherosclerotic heart disease of [place] coronary artery without angina pectoris (9) HTN (hypertension) Hypertension type: essential hypertension Qualified Code(s): I10 - Essential (primary) hypertension
[2023-08-29] MEDS: OLANZapine 10 MG/2.1 ML SDV IM PRN (01:05)
[2023-08-29] MEDS: LACTATED RINGER'S 1,000 ML IV SCH (01:05)
[2023-08-29] MEDS ORDERED: ONDANSETRON INJ 2 MG/ML 2 ML VIAL IV PRN (02:10)
[2023-08-29] MEDS ORDERED: ACETAMINOPHEN 1000 MG/100 ML IV IV PRN (02:10)
[2023-08-29] MEDS ORDERED: ACETAMINOPHEN 1,000 MG/100 ML VIAL IV PRN (02:30)
[2023-08-29] MEDS: OLANZapine 10 MG/2.1 ML SDV IM STA (04:41)
[2023-08-29 04:56] LABS: Appearance Urine Clear (Clear); Bilirubin Urine Negative (Negative); Blood Urine Negative (Negative); Color Urine Dark Yellow; Glucose Urine UA Negative (Negative); Ketones Urine 1+ (Negative); Leukocyte Esterase Urine Negative (Negative); Nitrite Urine Negative (Negative); Protein Urine Negative (Negative); Specific Gravity Urine 1.022 (1.000-1.030); Urobilinogen Urine Negative (Negative); pH Urine 5.5 (4.5-7.5)
--- NOTE | 2023-08-29 07:31 | XRay Report ---
XR KUB/Abdomen 1 view CLINICAL HISTORY: abdominal pain s/p enema TECHNIQUE: 1 view of the abdomen was obtained. Comparison: Comparison is made to abdomen radiograph 09/30/[address] abdomen pelvis 08/28/2023 FINDINGS: Lung bases are unremarkable. Degenerative changes are seen in the visualized skeleton. L4-L5 posterio r fixation hardware is seen. Multiple gas-distended loops of bowel are seen, likely reflecting redund ant large bowel. No definite evidence of small bowel obstruction. Large gas burden and small stool bu rden noted. IMPRESSION: Prominent colonic gas is seen. No acute abnormality. Within the limits of a supine exam, no evidence of pneumoperitoneum. An upright or decubitus radiograph would be more sensitive. ACT 112: Negative or not required by law. Electronically signed by: Devonte Sprague M.D. 08/29/2023 7:30 AM
[2023-08-29] MEDS: HEPARIN SOD 5,000 UNIT/0.5 ML VIAL SQ SCH (08:36)
[2023-08-29] MEDS: MoRPHine SULFATE 4 MG/ML 1 ML CARP\\VIAL IV PRN (09:24)
[2023-08-29] MEDS: PANTOprazole 40 MG in SYRINGE 0 ML IV SCH (10:34)
--- NOTE | 2023-08-29 10:36 | Hospitalist Progress Note ---
Date of Service August 29, 2023 Assessment & Plan (1) Fecal impaction: Plan: - CT scan abdomen pelvis with fecal impaction, without signs of stercoral colitis - Patient received bowel regimen of milk of molasses enema x 2 and soapsuds enema x 1 from the ED, with moderate effects - Zyprexa as needed for agitation, Morphine sulfate as needed for severe pain, Acetaminophen as needed for mild pain or fever - Digital fecal disimpaction on 08/29/2023, removed some formed stool with significant liquid stool - brown, nonbloody. -- Another soapsuds enema resulted in multiple liquid stools -- KUB revealed prominent colonic gas without large stool burden or rectal stool ball (2) Acute confusion: Plan: - Possible etiologies include but not limited to: Constipation/fecal impaction/dehydration, progression of underlying dementia, abdominal pain, urinary tract infection - Patient was in particular noted to be agitated as he was having bowel movements while in the ED - Zyprexa as needed for agitation - UA was negative, urine culture results pending (3) Dementia: Plan: - Baseline dementia has most likely been exacerbated in the setting of dehydration and pain from fecal impaction (4) Agitation: Plan: As above Plan CODE STATUS: DNR/DNI VTE prophylaxis: Heparin Admission and Anticipated Discharge Date Admission Date: August 29, 2023 Subjective Patient seen and evaluated at bedside with and daughter. Patient has dementia at baseline, but appears more confused/agitated than normal per his family. He had urinary retention and the plan was to do another straight cath, but while in the room, the nurse and I assisted the patient to the bathroom where he urinated on his own. The family stated they have not slept or eaten and appeared emotional. I recommended that they eat, rest, and take care of themselves, and I put a 1:1 order in for the patient for when family is not present. He had 3 enemas in the ED, but still no productive bowel movements and still in significant pain. I performed a digital fecal disimpaction, which removed some solid stool and quite a bit of liquid stool followed. Soapsuds enema relieved more stool. Patient appears to be calmer at this time, most likely multifactorial between pain relief and the Zyprexa. Physical Exam Physical Exam: General: Well-developed, well-nourished. Moderately agitated. Dementia at baseline, but appears more confused and agitated than normal. Dry mucous membranes in oropharynx. Skin: The skin was without rashes, erythema, edema, or bruising. Cardiac: Regular rate and rhythm without murmurs gallops or rubs. Pulm: Clear to auscultation bilaterally without wheezes, rales or rhonchi. No retractions or accessory muscle use. Abdominal: Positive bowel sounds x 4. Generalized tenderness. Mildly distended. No masses or organomegaly. No guarding or rebound tenderness. Neuro: Responsive to some stimuli. Follows commands. Agitated. Results & Data Results & Data Vital Signs (Past 12 Hours) Vital Signs Temp Pulse Pulse Pulse Resp BP BP 08/29/23 07:06 36.3 C L 92 H 24 157/75 H 08/29/23 02:10 36.8 C 80 20 167/82 H 08/29/23 01:15 86 17 164/80 H 08/29/23 01:00 61 17 164/80 H 08/29/23 00:51 60 08/29/23 00:00 63 19 08/28/23 23:00 63 21 Pulse Ox O2 Del Method 08/29/23 07:06 95 Room Air 08/29/23 02:10 94 Room Air 08/29/23 01:15 95 Room Air 08/29/23 01:00 94 Room Air 08/29/23 00:51 08/29/23 00:00 94 Room Air 08/28/23 23:00 94 Room Air Laboratory Results Reviewed CBC Reviewed chemistries Reviewed KUB PG Care Time/CCT Total # of Minutes Spent Total Time Spent with Patient: Total time spent is greater than 50% in coordination of care (as documented) at patient's floor/unit and/or counseling patient: Coding Level of Care Code 46234 SUB INP/OBS CARE 3/50MIN Diagnoses Fecal impaction K56.41 Acute confusion R41.0 Dementia F03.90 Agitation R45.1
[2023-08-29] MEDS ORDERED: EUCERIN CR 120 GM JAR EXT PRN (16:27)
--- NOTE | 2023-08-29 16:45 | XRay Report ---
XR KUB/Abdomen 1 view CLINICAL HISTORY: constipation TECHNIQUE: 1 view of the abdomen was obtained. Comparison: Comparison is made to abdomen radiograph 08/28/2023 FINDINGS: Lung bases are unremarkable. Posterior fixation hardware is seen spanning L5-S1. The bowel gas patter n is nonobstructive. Small stool burden is seen. Prominent colonic gas is seen. IMPRESSION: Prominent colonic gas without large stool burden or rectal stool ball. ACT 112: Negative or not required by law. Electronically signed by: Devonte Sprague M.D. 08/29/2023 4:44 PM
[2023-08-30 07:06] LABS: Basophils # (auto) 0.04 K/uL (0.00-0.20); Basophils % (auto) 0.2 %; Eosinophils # (auto) 0.03 K/uL (0.00-0.50); Eosinophils % (auto) 0.2 %; Hematocrit (blood only) 43.5 % (42.0-52.0); Hemoglobin 15.7 g/dl (14.0-18.0); Immature Granulocytes # (auto) 0.04 K/uL (0.01-0.20); Immature Granulocytes % (auto) 0.2 %; Lymphocytes # (auto) 1.58 K/uL (1.20-3.40); Lymphocytes % (auto) 9.8 %; Mean Corpuscular Hemoglobin 32.6 pg (25.0-34.0); Mean Corpuscular Hgb Conc 36.1 g/dL (32.0-36.0); Mean Corpuscular Volume 90.2 fL (80.0-100.0); Mean Platelet Volume 13.4 fL (9.4-12.4); Monocytes # (auto) 1.69 K/uL (0.11-0.59); Monocytes % (auto) 10.5 %; Neutrophils # (auto) 12.71 K/uL (1.40-6.50); Neutrophils % (auto) 79.1 %; Platelet Count 199 K/uL (130-400); RDW Coefficient of Variation 12.6 % (11.5-14.5); RDW Standard Deviation 41.7 fL (36.4-46.3); Red Blood Count 4.82 M/uL (4.70-6.10); White Blood Count 16.09 K/ul (4.8-10.8)
[2023-08-30 08:26] LABS: Albumin Level 3.8 gm/dl (3.4-5.0); BUN Creatinine Ratio 20.8 (10-20); Calcium 8.6 mg/dl (8.6-10.3); Creatinine Clr Calc Pharmacy 55.4 ml/min; Est GFR (African American) 95.2 ml/min; Est GFR (Non-African American) 82.2 ml/min; Magnesium 1.8 mg/dl (1.7-2.4); Phosphorus 2.9 mg/dl (2.5-4.9); Potassium 3.9 mmol/L (3.5-5.1)
--- NOTE | 2023-08-30 17:11 | Hospitalist Progress Note ---
Date of Service August 30, 2023 Assessment & Plan (1) Fecal impaction: Plan: - CT scan abdomen pelvis with fecal impaction, without signs of stercoral colitis - Patient received bowel regimen of milk of molasses enema x 2 and soapsuds enema x 1 from the ED, with moderate effects - Zyprexa as needed for agitation, Morphine sulfate as needed for severe pain, Acetaminophen as needed for mild pain or fever - Digital fecal disimpaction on 08/29/2023, removed some formed stool with significant liquid stool - brown, nonbloody. -- Another soapsuds enema resulted in multiple liquid stools -- KUB revealed prominent colonic gas without large stool burden or rectal stool ball (2) Acute confusion: Plan: - Possible etiologies include but not limited to: Constipation/fecal impaction/dehydration, progression of underlying dementia, abdominal pain, urinary tract infection - Patient was in particular noted to be agitated as he was having bowel movements while in the ED - Zyprexa as needed for agitation - UA was negative, urine culture preliminary results no growth x24 hours (3) Dementia: Plan: - Baseline dementia has most likely been exacerbated in the setting of dehydration and pain from fecal impaction - ? Hospital associated delirium (4) Agitation: Plan: As above Plan CODE STATUS: DNR/DNI VTE prophylaxis: Heparin Admission and Anticipated Discharge Date Admission Date: August 29, 2023 Subjective Patient seen and evaluated at bedside with and daughter. The patient was s leeping comfortably in the bedside chair. The daughter reports that he still becomes agitated when he wakes up and tries to leave the room. She states that he becomes delirious like this every time he is in the hospital. Plan to continue Zyprexa, as this has kept the patient calm and comfortable so far. I discussed rehab upon discharge with the and daughter, and they were agreeable to this as they also feel that he is too weak and unstable to manage by themselves at home. Physical Exam Physical Exam: General: Well-developed, well-nourished. Moderately agitated. Dementia at baseline, but appears more confused and agitated than normal. Dry mucous membranes in oropharynx. Skin: The skin was without rashes, erythema, edema, or bruising. Cardiac: Regular rate and rhythm without murmurs gallops or rubs. Pulm: Clear to auscultation bilaterally without wheezes, rales or rhonchi. No retractions or accessory muscle use. Abdominal: Positive bowel sounds x 4. Generalized tenderness. Mildly distended. No masses or organomegaly. No guarding or rebound tenderness. Neuro: Responsive to some stimuli. Follows commands. Agitated. Results & Data Results & Data Vital Signs (Past 12 Hours) Vital Signs Temp Pulse Resp BP Pulse Ox O2 Del Method 08/30/23 09:30 Room Air 08/30/23 07:06 37.0 C 68 20 140/69 92 Room Air Laboratory Results Reviewed CBC Reviewed chemistries PG Care Time/CCT Total # of Minutes Spent Total Time Spent with Patient: Total time spent is greater than 50% in coordination of care (as documented) at patient's floor/unit and/or counseling patient: Coding Level of Care Code 02724 SUB INP/OBS CARE 2/35MIN Diagnoses Fecal impaction K56.41 Acute confusion R41.0 Dementia F03.90 Agitation R45.1
[2023-08-31 07:44] LABS: Basophils # (auto) 0.06 K/uL (0.00-0.20); Basophils % (auto) 0.4 %; Eosinophils % (auto) 0.7 %; Hematocrit (blood only) 44.5 % (42.0-52.0); Hemoglobin 15.5 g/dl (14.0-18.0); Immature Granulocytes # (auto) 0.06 K/uL (0.01-0.20); Immature Granulocytes % (auto) 0.4 %; Lymphocytes # (auto) 1.63 K/uL (1.20-3.40); Lymphocytes % (auto) 11.2 %; Mean Corpuscular Hemoglobin 31.8 pg (25.0-34.0); Mean Corpuscular Hgb Conc 34.8 g/dL (32.0-36.0); Mean Corpuscular Volume 91.4 fL (80.0-100.0); Monocytes # (auto) 1.85 K/uL (0.11-0.59); Monocytes % (auto) 12.7 %; Neutrophils # (auto) 10.89 K/uL (1.40-6.50); Neutrophils % (auto) 74.6 %; Platelet Count 200 K/uL (130-400); RDW Coefficient of Variation 12.8 % (11.5-14.5); Red Blood Count 4.87 M/uL (4.70-6.10); White Blood Count 14.59 K/ul (4.8-10.8)
[2023-08-31 07:53] LABS: Potassium 3.6 mmol/L (3.5-5.1)
[2023-08-31 07:59] LABS: BUN Creatinine Ratio 29.7 (10-20); Creatinine Clr Calc Pharmacy 38.4 ml/min; Est GFR (African American) 69.3 ml/min; Est GFR (Non-African American) 59.8 ml/min
[2023-08-31 08:08] LABS: Albumin Level 3.7 gm/dl (3.4-5.0); Phosphorus 2.9 mg/dl (2.5-4.9)
[2023-08-31 08:24] LABS: Magnesium 2.1 mg/dl (1.7-2.4)
[2023-08-31] MEDS: ACETAMINOPHEN 325 MG TAB PO SCH (21:21)
[2023-08-31] MEDS: OLANZapine 5 MG TABLET PO SCH (21:21)
[2023-08-31] MEDS: HALOPERIDOL LACTATE 5 MG/ML 1 ML VIAL IM STA ×2 (21:40→22:39)
--- NOTE | 2023-08-31 22:17 | Hospitalist Progress Note ---
Date of Service August 31, 2023 Assessment & Plan (1) Fecal impaction: Plan: - CT scan abdomen pelvis with fecal impaction, without signs of stercoral colitis - Patient received bowel regimen of milk of molasses enema x 2 and soapsuds enema x 1 from the ED, with moderate effects - Zyprexa as needed for agitation, Morphine sulfate as needed for severe pain, Acetaminophen as needed for mild pain or fever - Digital fecal disimpaction on 08/29/2023, removed some formed stool with significant liquid stool - brown, nonbloody. -- Another soapsuds enema resulted in multiple liquid stools -- KUB revealed prominent colonic gas without large stool burden or rectal stool ball (2) Acute confusion: Plan: - Possible etiologies include but not limited to: Constipation/fecal impaction/dehydration, progression of underlying dementia, abdominal pain, urinary tract infection - Patient was in particular noted to be agitated as he was having bowel movements while in the ED - Zyprexa as needed for agitation - UA was negative, urine culture preliminary results no growth x24 hours (3) Dementia: Plan: - Baseline dementia has most likely been exacerbated in the setting of dehydration and pain from fecal impaction - ? Hospital associated delirium (4) Agitation: Plan: As above Plan CODE STATUS: DNR/DNI VTE prophylaxis: Heparin Admission and Anticipated Discharge Date Admission Date: August 31, 2023 Subjective 88 yo male is confused. Review of Systems Review of Systems: All systems reviewed & are unremarkable except as noted in HPI & below Physical Exam Physical Exam: General: Well-developed, well-nourished. Skin: The skin was without rashes, erythema, edema, or bruising. Cardiac: Regular rate and rhythm without murmurs gallops or rubs. Pulm: Clear Abdominal: Positive bowel sounds x 4. Neuro: Responsive to some stimuli. Follows commands. Agitated. Results & Data Results & Data Vital Signs (Past 12 Hours) Vital Signs Temp Pulse Resp BP Pulse Ox O2 Del Method 08/31/23 15:14 37.1 C 65 20 154/61 H 94 Room Air PG Care Time/CCT Total # of Minutes Spent Total Time Spent with Patient: Total time spent is greater than 50% in coordination of care (as documented) at patient's floor/unit and/or counseling patient: Coding Level of Care Code 94321 SUB INP/OBS CARE 2/35MIN Diagnoses Fecal impaction K56.41 Acute confusion R41.0 Dementia F03.90 Agitation R45.1
[2023-08-31] MEDS ORDERED: OLANZapine 10 MG/2.1 ML SDV IM SCH (22:30)
[2023-09-01] MEDS: OLANZapine 10 MG/2.1 ML SDV IM PRN (05:55)
[2023-09-01 07:40] LABS: Hematocrit (blood only) 42.1 % (42.0-52.0); Hemoglobin 15.2 g/dl (14.0-18.0); Mean Corpuscular Hemoglobin 32.3 pg (25.0-34.0); Mean Corpuscular Hgb Conc 36.1 g/dL (32.0-36.0); Mean Corpuscular Volume 89.4 fL (80.0-100.0); Platelet Count 216 K/uL (130-400); RDW Coefficient of Variation 12.6 % (11.5-14.5); RDW Standard Deviation 41.4 fL (36.4-46.3); Red Blood Count 4.71 M/uL (4.70-6.10); White Blood Count 11.46 K/ul (4.8-10.8)
[2023-09-01 08:09] LABS: Albumin Globulin Ratio 1.3 (0.9-2); Albumin Level 3.6 gm/dl (3.4-5.0); BUN Creatinine Ratio 32.9 (10-20); Bilirubin,Total 0.8 mg/dl (0.2-1.0); Calcium 8.8 mg/dl (8.6-10.3); Est GFR (African American) 94.2 ml/min; Est GFR (Non-African American) 81.3 ml/min; Globulin 2.7 gm/dl (2.5-4.0); Potassium 3.8 mmol/L (3.5-5.1); Total Protein 6.3 gm/dl (6.0-8.3)
--- NOTE | 2023-09-01 16:31 | Hospitalist Progress Note ---
Date of Service September 01, 2023 Assessment & Plan (1) Fecal impaction: Plan: - CT scan abdomen pelvis with fecal impaction, without signs of stercoral colitis - Patient received bowel regimen of milk of molasses enema x 2 and soapsuds enema x 1 from the ED, with moderate effects - Zyprexa as needed for agitation, Morphine sulfate as needed for severe pain, Acetaminophen as needed for mild pain or fever - Digital fecal disimpaction on 08/29/2023, removed some formed stool with significant liquid stool - brown, nonbloody. -- Another soapsuds enema resulted in multiple liquid stools -- KUB revealed prominent colonic gas without large stool burden or rectal stool ball (2) Acute confusion: Plan: - Possible etiologies include but not limited to: Constipation/fecal impaction/dehydration, progression of underlying dementia, abdominal pain, urinary tract infection - Patient was in particular noted to be agitated as he was having bowel movements while in the ED - Zyprexa as needed for agitation - UA was negative, urine culture preliminary results no growth x24 hours Goal is to remove medications that can be worsening confusion. Morphine has been discontinued, patient on tylenol. (3) Dementia: Plan: - Baseline dementia has most likely been exacerbated in the setting of dehydration and pain from fecal impaction - ? Hospital associated delirium (4) Agitation: Plan: As above Plan CODE STATUS: DNR/DNI VTE prophylaxis: Heparin Admission and Anticipated Discharge Date Admission Date: August 31, 2023 Subjective Patient is confused. Review of Systems Review of Systems: Unobtainable due to cognitive status Physical Exam Physical Exam: General: Well-developed, well-nourished. Skin: The skin was without rashes, erythema, edema, or bruising. Cardiac: Regular rate and rhythm without murmurs gallops or rubs. Pulm: Clear Abdominal: Positive bowel sounds x 4. Neuro: Responsive to some stimuli. Follows commands. Agitated. Results & Data Results & Data Vital Signs (Past 12 Hours) Vital Signs Temp Pulse Resp BP BP Pulse Ox O2 Del Method 09/01/23 15:30 36.8 C 81 17 150/63 H 95 Room Air 09/01/23 10:59 36.6 C 72 18 144/55 H 97 Room Air 09/01/23 07:04 37.0 C 70 18 162/85 H 95 Room Air 09/01/23 06:07 16 164/74 H 09/01/23 05:02 95 H 94 Room Air PG Care Time/CCT Total # of Minutes Spent Total Time Spent with Patient: Total time spent is greater than 50% in coordination of care (as documented) at patient's floor/unit and/or counseling patient: Coding Level of Care Code 12826 SUB INP/OBS CARE 2/35MIN Diagnoses Fecal impaction K56.41 Acute confusion R41.0 Dementia F03.90 Agitation R45.1
--- NOTE | 2023-09-02 09:56 | Hospitalist Progress Note ---
Date of Service September 02, 2023 Assessment & Plan (1) Fecal impaction: Plan: - CT scan abdomen pelvis with fecal impaction, without signs of stercoral colitis - Patient received bowel regimen of milk of molasses enema x 2 and soapsuds enema x 1 from the ED, with moderate effects - Zyprexa as needed for agitation, Morphine sulfate as needed for severe pain, Acetaminophen as needed for mild pain or fever - Digital fecal disimpaction on 08/29/2023, removed some formed stool with significant liquid stool - brown, nonbloody. -- Another soapsuds enema resulted in multiple liquid stools -- KUB revealed prominent colonic gas without large stool burden or rectal stool ball (2) Acute confusion: Plan: - Possible etiologies include but not limited to: Constipation/fecal impaction/dehydration, progression of underlying dementia, abdominal pain, urinary tract infection - Patient was in particular noted to be agitated as he was having bowel movements while in the ED - Zyprexa as needed for agitation - UA was negative, urine culture preliminary results no growth x24 hours Goal is to remove medications that can be worsening confusion. Morphine has been discontinued, patient on tylenol. (3) Dementia: Plan: - Baseline dementia has most likely been exacerbated in the setting of dehydration and pain from fecal impaction - ? Hospital associated delirium (4) Agitation: Plan: As above Plan CODE STATUS: DNR/DNI VTE prophylaxis: Heparin Admission and Anticipated Discharge Date Admission Date: August 31, 2023 Subjective 88 yo male reports no new symptoms. Review of Systems Review of Systems: All systems reviewed & are unremarkable except as noted in HPI & below Physical Exam Physical Exam: General: Well-developed, well-nourished. Skin: The skin was without rashes, erythema, edema, or bruising. Cardiac: Regular rate and rhythm without murmurs gallops or rubs. Pulm: Clear Abdominal: Positive bowel sounds x 4. Neuro: Responsive to some stimuli. Follows commands. Agitated. Results & Data Results & Data Vital Signs (Past 12 Hours) Vital Signs Temp Pulse Resp BP Pulse Ox O2 Del Method 09/02/23 07:26 36.5 C 72 17 178/79 H 92 Room Air 09/01/23 23:00 36.4 C L 101 H 20 163/84 H 91 Room Air PG Care Time/CCT Total # of Minutes Spent Total Time Spent with Patient: Total time spent is greater than 50% in coordination of care (as documented) at patient's floor/unit and/or counseling patient: Coding Level of Care Code 94341 SUB INP/OBS CARE 2/35MIN Diagnoses Fecal impaction K56.41 Acute confusion R41.0 Dementia F03.90 Agitation R45.1 Time Spent (min) 35
[2023-09-03 06:24] LABS: Hematocrit (blood only) 43.9 % (42.0-52.0); Hemoglobin 15.6 g/dl (14.0-18.0); Mean Corpuscular Hemoglobin 32.4 pg (25.0-34.0); Mean Corpuscular Hgb Conc 35.5 g/dL (32.0-36.0); Mean Corpuscular Volume 91.3 fL (80.0-100.0); Mean Platelet Volume 12.8 fL (9.4-12.4); Platelet Count 239 K/uL (130-400); RDW Coefficient of Variation 12.8 % (11.5-14.5); RDW Standard Deviation 42.5 fL (36.4-46.3); Red Blood Count 4.81 M/uL (4.70-6.10)
[2023-09-03 06:57] LABS: BUN Creatinine Ratio 35.4 (10-20); Calcium 9.3 mg/dl (8.6-10.3); Est GFR (African American) 94.2 ml/min; Est GFR (Non-African American) 81.3 ml/min; Potassium 3.7 mmol/L (3.5-5.1)
--- NOTE | 2023-09-03 11:26 | Hospitalist Progress Note ---
Date of Service September 03, 2023 Assessment & Plan (1) Fecal impaction: Plan: - CT scan abdomen pelvis with fecal impaction, without signs of stercoral colitis - Patient received bowel regimen of milk of molasses enema x 2 and soapsuds enema x 1 from the ED, with moderate effects - Zyprexa as needed for agitation, Morphine sulfate as needed for severe pain, Acetaminophen as needed for mild pain or fever - Digital fecal disimpaction on 08/29/2023, removed some formed stool with significant liquid stool - brown, nonbloody. -- Another soapsuds enema resulted in multiple liquid stools -- KUB revealed prominent colonic gas without large stool burden or rectal stool ball (2) Acute confusion: Plan: - Possible etiologies include but not limited to: Constipation/fecal impaction/dehydration, progression of underlying dementia, abdominal pain, urinary tract infection - Patient was in particular noted to be agitated as he was having bowel movements while in the ED - Zyprexa as needed for agitation - UA was negative, urine culture preliminary results no growth x24 hours Goal is to remove medications that can be worsening confusion. Morphine has been discontinued, patient on tylenol. Patient appears at baseline. will discontinue protonix (3) Dementia: Plan: - Baseline dementia has most likely been exacerbated in the setting of dehydration and pain from fecal impaction - ? Hospital associated delirium (4) Agitation: Plan: As above Plan CODE STATUS: DNR/DNI VTE prophylaxis: Heparin Admission and Anticipated Discharge Date Admission Date: August 31, 2023 Subjective 88 yo male is in no acute distress. No new complaints. Review of Systems Review of Systems: All systems reviewed & are unremarkable except as noted in HPI & below Physical Exam Physical Exam: General: Well-developed, well-nourished. Skin: The skin was without rashes, erythema, edema, or bruising. Cardiac: Regular rate and rhythm without murmurs gallops or rubs. Pulm: Clear Abdominal: Positive bowel sounds x 4. Neuro: Responsive to some stimuli. Follows commands. Agitated. Results & Data Results & Data Vital Signs (Past 12 Hours) Vital Signs Temp Pulse Resp BP Pulse Ox O2 Del Method 09/03/23 07:14 36.4 C L 79 20 173/81 H 93 Room Air PG Care Time/CCT Total # of Minutes Spent Total Time Spent with Patient: Total time spent is greater than 50% in coordination of care (as documented) at patient's floor/unit and/or counseling patient: Coding Level of Care Code 66572 SUB INP/OBS CARE 2/35MIN Diagnoses Fecal impaction K56.41 Acute confusion R41.0 Dementia F03.90 Agitation R45.1
[2023-09-04 06:49] LABS: Hematocrit (blood only) 46.8 % (42.0-52.0); Hemoglobin 16.6 g/dl (14.0-18.0); Mean Corpuscular Hemoglobin 32.7 pg (25.0-34.0); Mean Corpuscular Hgb Conc 35.5 g/dL (32.0-36.0); Mean Corpuscular Volume 92.1 fL (80.0-100.0); Mean Platelet Volume 12.8 fL (9.4-12.4); Platelet Count 254 K/uL (130-400); RDW Standard Deviation 44.2 fL (36.4-46.3); Red Blood Count 5.08 M/uL (4.70-6.10); White Blood Count 12.43 K/ul (4.8-10.8)
[2023-09-04 07:09] LABS: BUN Creatinine Ratio 41.3 (10-20); C Reactive Protein 7.77 mg/dl (0-0.5); Calcium 9.7 mg/dl (8.6-10.3); Creatinine Clr Calc Pharmacy 53.3 ml/min; Est GFR (African American) 93.8 ml/min; Est GFR (Non-African American) 80.9 ml/min; Potassium 3.6 mmol/L (3.5-5.1)
--- NOTE | 2023-09-04 21:30 | Hospitalist Progress Note ---
Date of Service September 04, 2023 Assessment & Plan (1) Fecal impaction: Plan: - CT scan abdomen pelvis with fecal impaction, without signs of stercoral colitis - Patient received bowel regimen of milk of molasses enema x 2 and soapsuds enema x 1 from the ED, with moderate effects - Zyprexa as needed for agitation, Morphine sulfate as needed for severe pain, Acetaminophen as needed for mild pain or fever - Digital fecal disimpaction on 08/29/2023, removed some formed stool with significant liquid stool - brown, nonbloody. -- Another soapsuds enema resulted in multiple liquid stools -- KUB revealed prominent colonic gas without large stool burden or rectal stool ball (2) Acute confusion: Plan: - Possible etiologies include but not limited to: Constipation/fecal impaction/dehydration, progression of underlying dementia, abdominal pain, urinary tract infection - Patient was in particular noted to be agitated as he was having bowel movements while in the ED - Zyprexa as needed for agitation - UA was negative, urine culture preliminary results no growth x24 hours Goal is to remove medications that can be worsening confusion. Morphine has been discontinued, patient on tylenol. Patient appears at baseline. will discontinue protonix (3) Dementia: Plan: - Baseline dementia has most likely been exacerbated in the setting of dehydration and pain from fecal impaction - ? Hospital associated delirium (4) Agitation: Plan: As above Plan CODE STATUS: DNR/DNI VTE prophylaxis: Heparin Admission and Anticipated Discharge Date Admission Date: August 31, 2023 Subjective Patient reports no new symptoms. Review of Systems Review of Systems: All systems reviewed & are unremarkable except as noted in HPI & below Physical Exam Physical Exam: General: Well-developed, well-nourished. Skin: The skin was without rashes, erythema, edema, or bruising. Cardiac: Regular rate and rhythm without murmurs gallops or rubs. Pulm: Clear Abdominal: Positive bowel sounds x 4. Neuro: Responsive to some stimuli. Follows commands. Agitated at times, but able to calm down on his own. Results & Data Results & Data Vital Signs (Past 12 Hours) Vital Signs Temp Pulse Resp BP Pulse Ox O2 Del Method 09/04/23 15:17 36.5 C 89 18 122/78 93 Room Air PG Care Time/CCT Total # of Minutes Spent Total Time Spent with Patient: Total time spent is greater than 50% in coordination of care (as documented) at patient's floor/unit and/or counseling patient: Coding Level of Care Code 86347 SUB INP/OBS CARE 07/06MIN Diagnoses Fecal impaction K56.41 Acute confusion R41.0 Dementia F03.90 Agitation R45.1
[2023-09-05 06:36] LABS: Hematocrit (blood only) 50.6 % (42.0-52.0); Hemoglobin 17.3 g/dl (14.0-18.0); Mean Corpuscular Hgb Conc 34.2 g/dL (32.0-36.0); Mean Corpuscular Volume 93.7 fL (80.0-100.0); Platelet Count 276 K/uL (130-400); RDW Coefficient of Variation 13.2 % (11.5-14.5); RDW Standard Deviation 45.4 fL (36.4-46.3); White Blood Count 18.77 K/ul (4.8-10.8)
[2023-09-05 06:49] LABS: BUN Creatinine Ratio 45.5 (10-20); Calcium 9.9 mg/dl (8.6-10.3); Creatinine Clr Calc Pharmacy 43.1 ml/min; Est GFR (African American) 79.6 ml/min; Est GFR (Non-African American) 68.7 ml/min; Potassium 3.6 mmol/L (3.5-5.1)
--- NOTE | 2023-09-05 21:54 | Hospitalist Progress Note ---
Date of Service September 05, 2023 Assessment & Plan (1) Fecal impaction: Plan: - CT scan abdomen pelvis with fecal impaction, without signs of stercoral colitis - Patient received bowel regimen of milk of molasses enema x 2 and soapsuds enema x 1 from the ED, with moderate effects - Zyprexa as needed for agitation, Morphine sulfate as needed for severe pain, Acetaminophen as needed for mild pain or fever - Digital fecal disimpaction on 08/29/2023, removed some formed stool with significant liquid stool - brown, nonbloody. -- Another soapsuds enema resulted in multiple liquid stools -- KUB revealed prominent colonic gas without large stool burden or rectal stool ball (2) Acute confusion: Plan: - Possible etiologies include but not limited to: Constipation/fecal impaction/dehydration, progression of underlying dementia, abdominal pain, urinary tract infection - Patient was in particular noted to be agitated as he was having bowel movements while in the ED - Zyprexa as needed for agitation - UA was negative, urine culture preliminary results no growth x24 hours Goal is to remove medications that can be worsening confusion. Morphine has been discontinued, patient on tylenol. Patient appears at baseline. will discontinue protonix (3) Dementia: Plan: - Baseline dementia has most likely been exacerbated in the setting of dehydration and pain from fecal impaction - ? Hospital associated delirium (4) Agitation: Plan: As above Plan CODE STATUS: DNR/DNI VTE prophylaxis: Heparin Admission and Anticipated Discharge Date Admission Date: August 31, 2023 Subjective No new symptoms Review of Systems Review of Systems: All systems reviewed & are unremarkable except as noted in HPI & below Physical Exam Physical Exam: General: Well-developed, well-nourished. Skin: The skin was without rashes, erythema, edema, or bruising. Cardiac: Regular rate and rhythm without murmurs gallops or rubs. Pulm: Clear Abdominal: Positive bowel sounds x 4. Neuro: Responsive to some stimuli. Follows commands. Agitated at times, but able to calm down on his own. Results & Data Results & Data Vital Signs (Past 12 Hours) Vital Signs Temp Pulse Resp BP Pulse Ox O2 Del Method 09/05/23 20:35 36.7 C 93 H 22 142/85 H 94 Room Air 09/05/23 19:45 Room Air 09/05/23 14:11 36.6 C 106 H 16 126/73 94 Room Air PG Care Time/CCT Total # of Minutes Spent Total Time Spent with Patient: Total time spent is greater than 50% in coordination of care (as documented) at patient's floor/unit and/or counseling patient: Coding Level of Care Code 49134 SUB INP/OBS CARE 07/06MIN Diagnoses Fecal impaction K56.41 Acute confusion R41.0 Dementia F03.90 Agitation R45.1
[2023-09-06 07:04] LABS: Basophils # (auto) 0.04 K/uL (0.00-0.20); Basophils % (auto) 0.3 %; Eosinophils # (auto) 0.05 K/uL (0.00-0.50); Eosinophils % (auto) 0.3 %; Hematocrit (blood only) 50.9 % (42.0-52.0); Hemoglobin 17.2 g/dl (14.0-18.0); Immature Granulocytes # (auto) 0.07 K/uL (0.01-0.20); Immature Granulocytes % (auto) 0.5 %; Lymphocytes % (auto) 14.6 %; Mean Corpuscular Hgb Conc 33.8 g/dL (32.0-36.0); Mean Corpuscular Volume 94.8 fL (80.0-100.0); Mean Platelet Volume 13.3 fL (9.4-12.4); Monocytes # (auto) 1.49 K/uL (0.11-0.59); Monocytes % (auto) 9.9 %; Neutrophils # (auto) 11.26 K/uL (1.40-6.50); Neutrophils % (auto) 74.4 %; Platelet Count 243 K/uL (130-400); RDW Coefficient of Variation 13.2 % (11.5-14.5); RDW Standard Deviation 46.1 fL (36.4-46.3); Red Blood Count 5.37 M/uL (4.70-6.10); White Blood Count 15.11 K/ul (4.8-10.8)
[2023-09-06 07:12] LABS: Albumin Level 3.7 gm/dl (3.4-5.0); BUN Creatinine Ratio 49.6 (10-20); Bilirubin Direct 0.2 mg/dl (0-0.2); Bilirubin,Total 0.7 mg/dl (0.2-1.0); C Reactive Protein 4.4 mg/dl (0-0.5); Calcium 9.7 mg/dl (8.6-10.3); Creatinine Clr Calc Pharmacy 37.8 ml/min; Est GFR (African American) 67.8 ml/min; Est GFR (Non-African American) 58.5 ml/min; Potassium 3.5 mmol/L (3.5-5.1)
--- NOTE | 2023-09-06 07:14 | XRay Report ---
KUB CLINICAL HISTORY: Leukocytosis. FINDINGS: 2 AP, portable, supine abdominal radiographs are compared to study dated 08/29/2023 and kavita elated with abdominal CT dated 08/28/2023. There is moderate fecal retention noted in the right colon. There is mild gaseous distention of the bowel loops with no radiographic evidence of high-grade obst ruction. No evidence of intraperitoneal free air is seen on these supine images. There are no abnorma l abdominal calcifications. The skeletal structures are osteopenic and appear intact. There is lumbos acral spondylosis as well as scoliosis. Postsurgical change is noted at the lumbosacral junction. IMPRESSION: 1. Moderate fecal retention is noted in the right colon. 2. Mild gaseous distention of the bowel with no radiographic evidence of high-grade obstruction. Electronically signed by: Cheko Aguirre M.D. 09/06/2023 7:13 AM
--- NOTE | 2023-09-06 08:38 | XRay Report ---
SINGLE VIEW CHEST CLINICAL HISTORY: Tachypnea FINDINGS: An AP, portable, upright chest radiograph is compared to study dated 05/19/2021 and correlat ed with chest CT dated 02/26/2019. The patient is status post midline sternotomy. The heart is top nor mal for projection noting atherosclerotic calcification of the thoracic aorta. Chronic interstitial t hickening is similar to previous. There is bibasilar scarring/atelectasis. The lungs and pleural spac es are otherwise clear. No pneumothorax is seen. The skeletal structures are osteopenic. The bony tho rax is grossly intact. IMPRESSION: No active disease in the chest. ACT 112: Negative or not required by law. Electronically signed by: Cheko Aguirre M.D. 09/06/2023 8:37 AM
[2023-09-06] MEDS: SODIUM CHLORIDE 0.9% 1,000 ML IV SCH (08:51)
--- NOTE | 2023-09-06 15:23 | Hospitalist Progress Note ---
Date of Service September 06, 2023 Assessment & Plan (1) Fecal impaction: Plan: CT scan abdomen pelvis on admission reveals with fecal impaction, without signs of stercoral colitis. Digital fecal disimpaction completed on 08/29/2023 with removal of formed stool and significant liquid stool. He also received soapsuds enemas successfully. KUB negative for obstruction (2) Toxic encephalopathy: Plan: Possibly from olanzapine which is now on hold. Supportive care. N.p.o. for now. IV fluids ordered. Will keep head of bed elevated. Speech therapy evaluation requested (3) Dementia: Plan: With agitation. Olanzapine temporarily placed on hold due to toxic encephalopathy. Supportive care. He also may have a component of hospital delirium Plan CODE STATUS: DNR/DNI VTE prophylaxis: Heparin Disposition to be determined Admission and Anticipated Discharge Date Admission Date: August 31, 2023 Subjective Very lethargic. He may have a toxic encephalopathy from the olanzapine given at bedtime. He is tachypneic and nursing earlier stated he had abnormal breath sounds. He may have aspirated. Fortunately, the chest x-ray is negative for CHF or infiltrates. EKG reveals normal sinus rhythm without acute changes. Speech therapy evaluation has been requested. Olanzapine has been placed on hold. He is n.p.o. for now. IV fluids ordered. Keep head of bed elevated 30 degrees at all times for now. Review of Systems 2 Review of Systems: The patient is lethargic and unable to answer any questions regarding review of systems at this time Physical Exam 2 Physical Exam: General-lethargic. No fever HEENT-head atraumatic and normocephalic, pupils equal and reactive to light, extraocular muscles intact Neck-no lymphadenopathy or thyromegaly, trachea midline Chest-scattered bilateral rhonchi. No wheezing. He is somewhat tachypneic Cardiac-regular rate and rhythm, normal S1 and S2. Mildly tachycardic Abdomen-normal bowel sounds, nontender, no hepatosplenomegaly Extremities-no cyanosis, clubbing, or edema Neuro-lethargic. Cannot completely assess. No apparent focal deficits however. He is able to move all 4 extremities Psych-cannot assess Results & Data Results & Data Vital Signs (Past 12 Hours) Vital Signs Temp Pulse Resp BP Pulse Ox O2 Del Method 09/06/23 14:45 36.5 C 70 16 133/88 93 Room Air 09/06/23 07:51 30 H 09/06/23 07:32 36.6 C 72 18 170/78 H 92 Room Air 09/06/23 07:30 Room Air Laboratory Results 09/06/23 06:32 09/06/23 06:32 PG Care Time/CCT Total # of Minutes Spent Total Time Spent with Patient: Total time spent is greater than 50% in coordination of care (as documented) at patient's floor/unit and/or counseling patient: Coding Level of Care Code 87759 SUB INP/OBS CARE 3/50MIN Diagnoses Fecal impaction K56.41 Toxic encephalopathy G92.9 Dementia F03.90
--- NOTE | 2023-09-06 16:12 | Electrocardiogram Report ---
Test Reason : Blood Pressure : / mmHG Vent. Rate : 092 BPM Atrial Rate : 092 BPM P-R Int : 150 ms QRS Dur : 076 ms QT Int : 370 ms P-R-T Axes : 047 006 073 degrees QTc Int : 457 ms Normal sinus rhythm with sinus arrhythmia Possible Left atrial enlargement Inferior infarct , age undetermined Abnormal ECG When compared with ECG of 19-MAY-2021 16:27, Vent. rate has increased BY 30 BPM Nonspecific T wave abnormality now evident in Inferior leads Nonspecific T wave abnormality now evident in Lateral leads Confirmed by Jose Yusuf ([id number]) on 09/06/2023 4:12:12 PM Referred By: REFERRED SELF Confirmed By:Jose Yusuf
--- NOTE | 2023-09-07 07:57 | Hospitalist Progress Note ---
Date of Service September 07, 2023 Assessment & Plan (1) Fecal impaction: Plan: CT scan abdomen pelvis on admission consistent with fecal impaction, without signs of stercoral colitis. Digital fecal disimpaction (2) Toxic encephalopathy: Plan: Possibly from olanzapine which is now on hold. Supportive care. Speech therapy evaluation requested pt with markedly abnormal ua, one dose of ceftriaxone given awaiting culture (3) Dementia: Plan: With agitation. Olanzapine temporarily placed on hold due to toxic encephalopathy. Supportive care. He also may have a component of hospital delirium (4) HTN (hypertension): Plan: Blood pressure up with some tachycardia, will start some Coreg and follow, cardiology eval in past with loop recoreder showed symptomatic PAC but not afib Plan CODE STATUS: DNR/DNI VTE prophylaxis: Heparin Admission and Anticipated Discharge Date Admission Date: August 31, 2023 Subjective pt was lethargic, could mumble hello, guards face to hand drop ua is markedly abnormal one dose ceftriaxone Physical Exam Physical Exam: pt is comfortable, guarding airway, able to mumble and reposition Results & Data Results & Data Vital Signs (Past 12 Hours) Vital Signs Temp Pulse Pulse Resp BP Pulse Ox O2 Del Method 09/07/23 07:33 97.5 F L 73 20 177/110 H 96 Room Air 09/06/23 21:52 97.9 F 65 18 159/85 H 93 Room Air Laboratory Results review ua PG Care Time/CCT Total # of Minutes Spent Total Time Spent with Patient: Total time spent is greater than 50% in coordination of care (as documented) at patient's floor/unit and/or counseling patient: Coding Level of Care Code 56482 SUB INP/OBS CARE 3/50MIN Diagnoses Fecal impaction K56.41 Toxic encephalopathy G92.9 Dementia F03.90 Essential hypertension I10 Hypertension type: essential hypertension (4) HTN (hypertension) Hypertension type: essential hypertension Qualified Code(s): I10 - Essential (primary) hypertension
[2023-09-07] MEDS: SENNA 8.6 MG TAB PO SCH (08:24)
[2023-09-07] MEDS: carvediloL 3.125 MG TAB PO SCH (08:24)
[2023-09-07 12:36] LABS: Appearance Urine Turbid (Clear); Bacteria Urine Automated Negative (Negative); Bilirubin Urine Negative (Negative); Blood Urine 3+ (Negative); Color Urine Dark Yellow; Glucose Urine UA Negative (Negative); Ketones Urine Trace (Negative); Leukocyte Esterase Urine 2+ (Negative); Nitrite Urine Positive (Negative); Protein Urine 1+ (Negative); Specific Gravity Urine 1.031 (1.000-1.030); Urobilinogen Urine Negative (Negative); WBC Urine Automated >30 /hpf (0-5); pH Urine 5.5 (4.5-7.5)
[2023-09-07 12:52] LABS: Amorphous Sediment Urine Present (None Prsent); RBC Urine Automated >30 /hpf (0-4)
[2023-09-07] MEDS: cefTRIAXone SODIUM 2,000 MG in DEXTROSE 5 % MINI-B 50 ML IV STA (19:43)
[2023-09-07] MEDS ORDERED: Nursing to Pharmacy Communication SCH (23:30)
--- NOTE | 2023-09-08 05:13 | Death Pronouncement Note ---
Date of Service September 08, 2023 Pronouncement Note Admission Date August 31, 2023 Date and Time of Date of : 09/08/23 Time of : 04:55 Preliminary Cause of (1) Fecal impaction: (2) Toxic encephalopathy: (3) Dementia: (4) HTN (hypertension): Hypertension type: essential hypertension Qualified Code(s): I10 - Essential (primary) hypertension Summary Called to patient's room at 0450 as he had been found unresponsive. Patient had been alert to care as recent as 0415 and had no acute symptoms or concerns. Additional Data Confirmation of : no pulse, no respirations, no heart sounds and pupils fixed and dilated Pronouncement Performed By: Resident Physician Family: contacted ( informed of Rehan's passing) Attending/PCP notified?: Yes Attending physician: Kedar Pritchard MD Was code activated?: No Autopsy requested?: No Resident Activity Tracking Resident Involvement: Resident Care Provided Care Provided: Adult [facility] Medicine (night)
== END 2023-09-08 09:54 | disposition expired | DRG 388 ==
LOC: 3N 16:10 → ED 16:10 → SUATTDRO 08-29 00:37 → 3N 08-29 01:36 → SUATTDRO 08-31 09:45 → 3N 09-03 08:06
DX: F03.90 Unspecified dementia, unspecified severity, without behavioral disturbance, psychotic disturbance, mood disturbance, and anxiety; K21.9 Gastro-esophageal reflux disease without esophagitis; G47.33 Obstructive sleep apnea (adult) (pediatric); Z88.8 Allergy status to other drugs, medicaments and biological substances; Z88.2 Allergy status to sulfonamides; I10 Essential (primary) hypertension; I25.10 Atherosclerotic heart disease of native coronary artery without angina pectoris; R10.30 Lower abdominal pain, unspecified; Z87.891 Personal history of nicotine dependence; Z66 Do not resuscitate; K56.41 Fecal impaction; G92.9 Unspecified toxic encephalopathy